=== PATIENT | female | born 1970 | race Caucasian/White ===

== ENCOUNTER 2018-10-15 02:09 | Inpatient (IN) | payer BC, OTHER ==
--- NOTE | 2018-10-15 02:43 | ED ---
Abdominal Pain HPI - General Source: patient, EMS Mode of arrival: EMS Limitations: no limitations <Hetal Brunson - Last Filed: 10/15/18 02:57> <Sukhdeep Hidalgo - Last Filed: 10/16/18 08:22> - General Chief Complaint: Abdominal Pain Stated Complaint: Kidney stones Time Seen by Provider: 10/15/18 02:13 - History of Present Illness Initial Comments: 48-year-old female patient presents to the emergency department tonight as a transfer from [facility] for possible septic kidney stone. The patient states that for the last 3 days she has been having sharp stabbing pain to the right upper quadrant abdomen radiating into her right flank. Patient states that today the pain became worse and she started to have vomiting and fever with this as well. Patient states that she has noticed a foul smell to her urine. She denies any hematuria, dysuria, urinary frequency, urinary urgency. States her temperature was as high as 101.9F. She states that she has been having increased frequency of stools but denies any diarrhea, hematochezia, or melena. States that she does have a history of kidney stones. She did have computed tomography scan at the other hospital which did show 5 mm obstructing stone at the right UPJ. Given this finding, fever, and elevated white blood cell count she was transferred here for urologic evaluation. Patient denies any recent rash, shortness breath, chest pain, numbness, tingling , dizziness, weakness, headache, visual changes, or any other complaints. ( Hetal Brunson) - Related Data Home Medications Medication Instructions Recorded Confirmed ALPRAZolam [Xanax] 0.5 mg PO BID 10/15/18 10/15/18 Alive Multivitamin 1 tab PO HS 10/15/18 10/15/18 Fenofibrate Nanocrystallized 145 mg PO HS 10/15/18 10/15/18 [Fenofibrate] Ibuprofen [Motrin] 800 mg PO TID 10/15/18 10/15/18 Metoprolol Succinate [Toprol Xl] 50 mg PO HS 10/15/18 10/15/18 Omeprazole 40 mg PO HS 10/15/18 10/15/18 PARoxetine [Paxil] 20 mg PO HS 10/15/18 10/15/18 SUMAtriptan SUCCINATE [Imitrex] 100 mg PO DAILY PRN 10/15/18 10/15/18 Allergies Allergy/AdvReac Type Severity Reaction Status Date / Time No Known Allergies Allergy Verified 10/15/18 15:40 Review of Systems ROS Other: All systems not noted in ROS Statement are negative. <Hetal Brunson - Last Filed: 10/15/18 02:57> ROS Other: All systems not noted in ROS Statement are negative. <Sukhdeep Hidalgo - Last Filed: 10/16/18 08:22> ROS Statement: Those systems with pertinent positive or pertinent negative responses have been documented in the HPI. Past Medical History Past Medical History: Hyperlipidemia, Hypertension History of Any Multi-Drug Resistant Organisms: None Reported Past Surgical History: No Surgical Hx Reported Additional Past Surgical History / Comment(s): lmupectomy from back Past Psychological History: Depression Smoking Status: Current every day smoker Past Alcohol Use History: None Reported Past Drug Use History: None Reported <Hetal Brunson - Last Filed: 10/15/18 02:57> General Exam Limitations: no limitations General appearance: alert, in no apparent distress, other (This is a well- developed, well-nourished adult female patient in no acute distress. Vital signs upon presentation are temperature 99.2F, pulse 77, respirations 16, blood pressure 119/81, pulse ox 98% on room air.) Eye exam: Present: normal appearance, PERRL, EOMI. Absent: scleral icterus, conjunctival injection, periorbital swelling ENT exam: Present: normal exam, normal oropharynx, mucous membranes moist Respiratory exam: Present: normal lung sounds bilaterally. Absent: respiratory distress, wheezes, rales, rhonchi, stridor Cardiovascular Exam: Present: regular rate, normal rhythm, normal heart sounds. Absent: systolic murmur, diastolic murmur, rubs, gallop, clicks GI/Abdominal exam: Present: soft, normal bowel sounds. Absent: distended, tenderness, guarding, rebound, rigid Back exam: Present: normal inspection, CVA tenderness (R). Absent: CVA tenderness (L) Neurological exam: Present: alert, oriented X3, CN II-XII intact Psychiatric exam: Present: normal affect, normal mood Skin exam: Present: warm, dry, intact, normal color. Absent: rash <Hetal Brunson - Last Filed: 10/15/18 02:57> Vital Signs 10/15/18 10/15/18 02:10 04:27 Temperature 99.2 F Pulse Rate 77 88 Respiratory 16 16 Rate Blood Pressure 119/81 129/79 O2 Sat by Pulse 98 98 Oximetry Medical Decision Making <Hetal Brunson - Last Filed: 10/15/18 02:57> - Lab Data Result diagrams: 10/16/18 06:02 10/16/18 06:02 <Sukhdeep Hidalgo - Last Filed: 10/16/18 08:22> - Medical Decision Making 48-year-old female patient presented to the emergency department as a transfer from [facility] for possible septic kidney stone. Did review documentation from the other hospital which showed patient did have elevated white blood cell count at 13.9, urinalysis with positive nitrite, moderate leukocyte esterase, moderate bacteria. Patient was also febrile at 101.0F. CT abdomen and pelvis did show presence of a 5 mm stone at the right UPJ. My attending Dr. Hidalgo did speak to the urologist production line Dr. Solis. We will admit to medicine with urology consult. IV antibiotics were initiated. We will continue rocephin. Patient is aware of and agrees with plan. (Hetal Brunson) I saw this patient in conjunction with the physician higher level teaching assistant. I performed independent history and physical exam. Agree with case management. I discussed case with , covering urology. (Sukhdeep Hidalgo) Disposition Decision to Admit Reason: Admit from EC Decision Date: 10/15/18 Decision Time: 02:59 <Hetal Brunson - Last Filed: 10/15/18 02:57> <Sukhdeep Hidalgo - Last Filed: 10/16/18 08:22> Clinical Impression: Kidney stone on right side, Urinary tract infection Disposition: ADMITTED IP TO THIS [facility] Condition: Serious
[2018-10-15] MEDS ORDERED: KETOROLAC 30 MG/ML 1 ML VIAL IVP PRN (02:52)
[2018-10-15] MEDS ORDERED: MORPHINE SULFATE 4 MG/ML SYRINGE IV PRN (02:52)
[2018-10-15] MEDS ORDERED: NALOXONE 0.4 MG/ML 1 ML VIAL IV PRN (02:52)
[2018-10-15] MEDS: SODIUM CHLORIDE 0.9% 1,000 ML IV SCH ×2 (03:06→18:29)
[2018-10-15] MEDS: ONDANSETRON 4 MG/2 ML VIAL IVP PRN ×2 (04:42→15:58)
--- NOTE | 2018-10-15 07:38 | P.GSCN ---
History of Present Illness Consult date: 10/15/18 Reason for Consult: Right UPJ Calculus Requesting physician: Killian Padilla History of present illness: The patient is a 48-year-old white female with a history of recurrent urolithiasis. Her calculi have always been small and not required surgery. She has experienced abdominal discomfort for approximately 3 weeks. Yesterday, she developed severe right flank pain, associated with fever and chills. She was evaluated at [facility]. A computed tomography scan revealed right hydronephrosis with perinephric stranding due to a 5 mm right proximal ureteral calculus, just distal to the ureteropelvic junction. Additional small bilateral renal calculi were seen. Review of Systems - Constitutional Reports chills, Reports chronic headaches, Reports fever - Gastrointestinal Reports nausea, Reports vomiting - Genitourinary Genitourinary: Denies dysuria, Denies hematuria Past Medical History Past Medical History: Hyperlipidemia, Hypertension History of Any Multi-Drug Resistant Organisms: None Reported Past Surgical History: No Surgical Hx Reported Additional Past Surgical History / Comment(s): lmupectomy from back Past Anesthesia/Blood Transfusion Reactions: No Reported Reaction Past Psychological History: Depression Smoking Status: Current every day smoker Past Alcohol Use History: None Reported Past Drug Use History: None Reported - Past Family History Father Family Medical History: Diabetes Mellitus, Myocardial Infarction ([place]) Additional Family Medical History / Comment(s): Father at 56 of [place] Mother Family Medical History: CVA/TIA, Diabetes Mellitus Medications and Allergies Allergies Allergy/AdvReac Type Severity Reaction Status Date / Time No Known Allergies Allergy Verified 10/15/18 03:46 Surgical - Exam Vital Signs Temp Pulse Resp BP Pulse Ox 99.2 F 77 16 119/81 98 10/15/18 02:10 10/15/18 02:10 10/15/18 02:10 10/15/18 02:10 10/15/18 02:10 - General well developed, well nourished, moderate distress - Respiratory normal respiratory effort - Abdomen Abdomen: soft, tender (Mild right CVA tenderness), no masses, no guarding, no rigid, no rebound, no distended - Psychiatric oriented to time, oriented to person, oriented to place, speech is normal, memory intact Results - Imaging CT scan - abdomen: report reviewed, image reviewed Assessment and Plan (1) Calculus of ureter Current Visit: Yes Status: Acute Code(s): N20.1 - CALCULUS OF URETER SNOMED Code(s): 62393088 (2) Acute pyelonephritis Current Visit: Yes Status: Acute Code(s): N10 - ACUTE PYELONEPHRITIS SNOMED Code(s): 91504707 (3) Hydronephrosis with urinary obstruction due to ureteral calculus Current Visit: Yes Status: Acute Code(s): N13.2 - HYDRONEPHROSIS WITH RENAL AND URETERAL CALCULOUS OBSTRUCTION SNOMED Code(s): 981803808 (4) Calculus of kidney Current Visit: Yes Status: Acute Code(s): N20.0 - CALCULUS OF KIDNEY SNOMED Code(s): 66973514 Plan: Mrs. Calixto appears to have acute right pyelonephritis complicated by a 5 mm right proximal ureteral calculus. She is receiving Rocephin. I have suggested she undergo cystoscopy with right ureteral stent placement to remove obstruction. The rationale for this was discussed. It was explained to her that following stent placement, she will be treated with appropriate antibiotics and undergo elective removal of her calculus in several weeks once her infection has cleared. Potential risks associated with stent placement were reviewed, including anesthesia, bleeding, infection, ureteral injury, and inability to successfully place a stent. It is my intent to place the stent later this afternoon. Time with Patient: Greater than 30
[2018-10-15] MEDS: ACETAMINOPHEN TAB 325 MG TAB PO PRN (08:09)
[2018-10-15 10:56] LABS: Appearance,Urine Turbid (Clear); Bacteria,Urine Moderate /hpf; Bilirubin,Urine Negative (Negative); Blood,Urine Large (Negative); Color,Urine Yellow; Glucose,Urine (UA) Negative (Negative); Ketones,Urine Negative (Negative); Leukocyte Esterase,Urine Large (Negative); Mucus,Urine Rare /hpf; Nitrite,Urine Negative (Negative); Protein,Urine 2+ (Negative); RBC,Urine 137 /hpf (0-5); Specific Gravity,Urine 1.014 (1.001-1.035); Squamous Epithelial Cell,Urine 3 /hpf (0-4); Urobilinogen,Urine <2.0 mg/dL (<2.0)
[2018-10-15] MEDS: BUTALB/APAP/CAFF 50-325-40MG TAB PO PRN (12:25)
--- NOTE | 2018-10-15 12:25 | P.HPIM ---
History of Present Illness This is a pleasant 48 years old female with past medical history of hypertension and hyperlipidemia and kidney stone. Patient was transferred from [facility]. Her presents with signs symptoms of abdominal pain. Patient states that she has abdominal pain about 3 weeks ago that subsided however yesterday she developed different kind of pain on the right abdomen and flank right taped into the right side, sharp, continuous, with no specific aggravating or relieving factors. Associated with nausea and vomiting and fever. And increased urinary frequency but without dysuria as per patient. Patient has history of kidney stones that they were small and did not need surgical intervention. [facility] patient had fever of 103 and blood cell count of 13.9 K. Platelets were low 131. Urinalysis was suggestive of infection. Potassium 3.3 liver enzymes were unremarkable. An serum creatinine is 1.[address] of the abdomen pelvis without contrast was showing numerous renal calculi with obstructing 1 and the right ureteral pelvic junction with hydronephrosis and perinephric edema which looks in new compared to old CAT scan. Patient has been already evaluated by urology team and their input is appreciated. Patient is going for procedure of cystoscopy and ureteral stent placement Review of Systems CONSTITUTIONAL: No fever, no malaise, no fatigue. HEENT: No recent visual problems or hearing problems. Denied any sore throat. CARDIOVASCULAR: No orthopnea, PND, no palpitations, no syncope. PULMONARY: No shortness of breath, no cough, no hemoptysis. GASTROINTESTINAL: No diarrhea, no nausea, no vomiting, no abdominal pain. Normoactive bowel sounds. NEUROLOGICAL: No headaches, no weakness, no numbness. HEMATOLOGICAL: Denies any bleeding or petechiae. GENITOURINARY: Denies any burning micturition, frequency, or urgency. MUSCULOSKELETAL/RHEUMATOLOGICAL: Denies any joint pain, swelling, or any muscle pain. ENDOCRINE: Denies any polyuria or polydipsia. Past Medical History Past Medical History: Hyperlipidemia, Hypertension History of Any Multi-Drug Resistant Organisms: None Reported Past Surgical History: No Surgical Hx Reported Additional Past Surgical History / Comment(s): lmupectomy from back Past Anesthesia/Blood Transfusion Reactions: No Reported Reaction Past Psychological History: Depression Smoking Status: Current every day smoker Past Alcohol Use History: None Reported Past Drug Use History: None Reported - Past Family History Father Family Medical History: Diabetes Mellitus, Myocardial Infarction ([place]) Additional Family Medical History / Comment(s): Father at 56 of [place] Mother Family Medical History: CVA/TIA, Diabetes Mellitus Medications and Allergies Home Medications Medication Instructions Recorded Confirmed Type ALPRAZolam [Xanax] 0.5 mg PO BID 10/15/18 10/15/18 History Alive Multivitamin 1 tab PO HS 10/15/18 10/15/18 History Fenofibrate Nanocrystallized 145 mg PO HS 10/15/18 10/15/18 History [Fenofibrate] Ibuprofen [Motrin] 800 mg PO TID 10/15/18 10/15/18 History Metoprolol Succinate [Toprol Xl] 50 mg PO HS 10/15/18 10/15/18 History Omeprazole 40 mg PO HS 10/15/18 10/15/18 History PARoxetine [Paxil] 20 mg PO HS 10/15/18 10/15/18 History SUMAtriptan SUCCINATE [Imitrex] 100 mg PO DAILY PRN 10/15/18 10/15/18 History Allergies Allergy/AdvReac Type Severity Reaction Status Date / Time No Known Allergies Allergy Verified 10/15/18 08:08 Physical Exam Vitals: Vital Signs Temp Pulse Pulse Resp BP BP Pulse Ox 10/15/18 10:02 98.8 F 10/15/18 07:00 102.7 F H 85 18 128/78 93 L 10/15/18 04:46 99.1 F 84 14 130/79 97 10/15/18 04:27 88 16 129/79 98 10/15/18 02:10 99.2 F 77 16 119/81 98 Intake and Output 10/14/18 10/15/18 10/15/18 22:59 06:59 14:59 Output Total 100 Balance -100 Output: Emesis 100 Other: Voiding Method Toilet Weight 97.522 kg GENERAL: The patient is alert and oriented x3, not in any acute distress. Well developed, well nourished. HEENT: Pupils are round and equally reacting to light. EOMI. No scleral icterus. No conjunctival pallor. Normocephalic, atraumatic. No pharyngeal erythema. No thyromegaly. CARDIOVASCULAR: S1 and S2 present. No murmurs, rubs, or gallops. PULMONARY: Chest is clear to auscultation, no wheezing or crackles. -ABDOMEN: Soft, nontender, nondistended, normoactive bowel sounds. No palpable organomegaly. Mild right CVA tenderness. MUSCULOSKELETAL: No joint swelling or deformity. EXTREMITIES: No cyanosis, clubbing, or pedal edema. NEUROLOGICAL: Gross neurological examination did not reveal any focal deficits. SKIN: No rashes. Results Labs: Abnormal Lab Results - Last 24 Hours (Table) 10/15/18 Range/Units 10:10 Urine Appearance Turbid H (Clear) Urine Protein 2+ H (Negative) Urine Blood Large H (Negative) Ur Leukocyte Esterase Large H (Negative) Urine RBC 137 H (0-5) /hpf Urine WBC Clumps Many H (None) /hpf Urine Bacteria Moderate H (None) /hpf Urine Mucus Rare H (None) /hpf Thrombosis Risk Factor Assmnt - Choose All That Apply Any of the Below Risk Factors Present?: Yes Each Factor Represents 1 point: Age 41-60 years, Obesity (BMI >25) Thrombosis Risk Factor Assessment Total Risk Factor Score: 2 Thrombosis Risk Factor Assessment Level: Low Risk Assessment and Plan Assessment: Acute right pyelonephritis Right hydronephrosis, secondary to obstructing renal calculi. Going for cystoscopy and ureteral stent placement by urology team Right ureteral colic No specific headache Hypertension Hyperlipidemia Plan: This is a pleasant 48 years old female who presents because of right kidney stone and right temporal nephrosis complicated by UTI. Continue with antibiotics. Urology input is appreciated patient is going for ureteral stent. Continue with IV fluids and antibiotic. Call infectious disease consult. Labs and medication were reviewed.. Continue same treatment. Continue with symptomatic treatment. Resume home medication. Monitor lytes and vitals. DVT and GI prophylaxis. Further recommendations of the clinical course of the patient DVT prophylaxis: Subcutaneous heparin GI Prophylaxis: Pepcid PT/OT: Pending Prognosis is guarded
[2018-10-15] MEDS ORDERED: LACTATED RINGERS 1,000 ML IV ONE (15:57)
[2018-10-15] MEDS ORDERED: DEXAMETHASONE SOD PHOS (MDV) 100 MG/10 ML VIAL IV ONE (15:58)
[2018-10-15] MEDS ORDERED: HYDROcodone/APAP 5-325MG 1 EACH TAB PO PRN ×2 (17:14)
--- NOTE | 2018-10-15 17:14 | P.OP ---
Date of Procedure: 10/15/18 Preoperative Diagnosis: Acute right pyelonephritis, right proximal ureteral calculus Postoperative Diagnosis: Same Procedure(s) Performed: Cystoscopy with right ureteral stent insertion Anesthesia: ITZ Surgeon: Brent Solis Estimated Blood Loss (ml): 0 IV fluids (ml): 300 Pathology: none sent Condition: stable Disposition: PACU Indications for Procedure: The patient is a 48-year-old white female admitted with acute right pyelonephritis. A CT scan revealed right hydronephrosis with perinephric stranding due to a 5 mm right proximal ureteral calculus, just distal to the ureteropelvic junction. Additional small bilateral renal calculi were seen. She is receiving IV antibiotics and now comes for placement of a ureteral stent. Operative Findings: Obstructing right proximal ureteral calculus. The urine drained from the right renal pelvis was cloudy in appearance. Description of Procedure: The patient was taken to the operating room and placed in the dorsolithotomy position, with legs supported in Apolinar stirrups. The external genitalia was prepped and draped sterilely. The 30 lens was used to introduce the 22-Honduran Stortz cystoscopic sheath through the urethra and into the bladder under direct vision. The bladder was examined in its entirety. Both ureteral orifices were of normal anatomic location and configuration. No tumors or foreign bodies were seen. A 0.035 inch Glidewire was passed through the cystoscope. The right ureteral orifice was cannulated, and the Glidewire was slowly advanced up to the renal pelvis. A 26 cm, 4.8-Honduran double-J ureteral stent was placed over the wire. Proper stent positioning was verified fluoroscopically and endoscopically. Cloudy urine drained through the stent. With the beak of the cystoscope immediately adjacent to the distal end of the stent, urine was collected and sent for culture and sensitivity. The bladder was emptied and the cystoscope removed. The patient tolerated the procedure well was taken to the recovery room in stable condition.
[2018-10-15] MEDS: FAMOTIDINE 20 MG/2 ML VIAL IV SCH (21:42)
[2018-10-15] MEDS: HEPARIN SODIUM,PORCINE 5,000 UNIT/ML 1 ML VIAL SQ SCH (21:43)
[2018-10-16] MEDS: BUTALB/APAP/CAFF 50-325-40MG TAB PO PRN (01:24)
--- NOTE | 2018-10-16 01:43 | CONS ---
CONSULTATION DATE OF SERVICE: 10/15/2018. REASON FOR CONSULTATION: Right-sided pyelonephritis, complicated urinary tract infection. HISTORY OF PRESENT ILLNESS: The patient is a 56-year-old female with past medical history significant for hypertension, hyperlipidemia, and renal stone. The patient started having pain to the right side abdominal area, mostly dull aching pain that has been going on for about 3 weeks off and on. The pain has been mostly in the flank area with some radiation to the right side. The patient says she tried to drink a lot of fluids to get relief of the pain. However, yesterday the pain got worse. The pain has been intense to almost 10/10 and severe with associated nausea and vomiting and the patient started to have a fever of 103 degrees Fahrenheit. With these symptoms, the patient presented to [facility] ER where the patient was evaluated by the ER physician. The patient did have fever of 103 degrees Fahrenheit. The patient did have elevated white count 13.9, UA was significantly positive. She did have a CT abdominal and pelvis which did show right ureteropelvic junction stone with hydronephrosis and perinephric edema. Subsequently, the patient has been transferred to [facility] ER to be evaluated by Urology service and a stent placement. The patient was started on Rocephin. Infectious Disease consultation was requested for further recommendations regarding antibiotic therapy. REVIEW OF SYSTEMS: Constitutional: Positive for weakness along with fever. Eyes: No complaint. ENT: No complaint. Respiratory: No complaint. Cardiovascular: No complaint. Genitourinary as per HPI. Gastrointestinal: As per HPI. MUSCULOSKELETAL: No complaint. INTEGUMENTARY: No complaint. Psychological no complaint. Endocrine no complaint. Neurologic no complaint. PAST MEDICAL HISTORY: Hypertension, hyperlipidemia and kidney stone, depression. PAST SURGICAL HISTORY: Lumpectomy. SOCIAL HISTORY: Positive for current every day smoking. No drinking or drug use. FAMILY HISTORY: Father with history of diabetes and [place]. Mother history of diabetes and CVA. ALLERGIES: No known drug allergies. MEDICATIONS: Medications include the patient is currently on Tylenol, , [place], Rocephin 1 g daily, Pepcid, heparin, morphine sulfate, Narcan, Zofran. PHYSICAL EXAMINATION: Blood pressure is 90/54 with a pulse of 52, temperature of 101.2. She is 93% on room air. General description is an elderly female lying in bed in no distress. No tachypnea or accessory muscles of respiration use. HEENT: Shows no pallor or scleral icterus. Oral mucosa membranes are dry. No pharyngeal erythema or thrush. NECK: Trachea central. No thyromegaly. Lungs unlabored breathing. Clear to auscultation with no wheeze or crackles. Heart S1-S2 regular rate and rhythm. ABDOMEN: Soft, mildly tender in the right flank area. No guarding. No rigidity. No organomegaly. Extremities: No edema of the feet. Skin examination: No rash or mass palpable. Neurological: Patient is awake, alert, oriented x3. Mood and affect normal. LABS: Urine has been turbid, large leukocyte esterase with more than 1-2 WBC. Cultures currently pending. White count of 13.1. CT with right-sided hydronephrosis. DIAGNOSTIC IMPRESSION AND PLAN: Patient admitted to the hospital with sepsis and the patient did have fever of 103 degrees Fahrenheit. The patient did have tachycardia, elevated white count 13.1, meeting criteria for SIRS. Source is right-sided urinary tract infection pyelonephritis complicated with right ureteropelvic junction stone, the likely organism that could be covered would be enteric gram-negative such as E coli. Apparently the patient has not been on any antibiotic therapy in the recent past. PLAN: 1. We will increase the Rocephin to 2 g IV piggyback daily. 2. IV fluids. 3. Depending upon the clinical response as well as cultures, we will adjust her medications further if needed. Thank you for this consultation. Will follow this patient along with you. MMODL / IJN: [id number] /
[2018-10-16 06:41] LABS: Basophils % (A) 0 %; Eosinophils % (A) 0 %; HCT 40.7 % (34.0-46.0); HGB 12.6 gm/dL (11.4-16.0); Hypochromasia Slight; Lymphocytes # (A) 0.9 k/uL (1.0-4.8); Lymphocytes % (A) 6 %; MCH 28.2 pg (25.0-35.0); MCHC 30.9 g/dL (31.0-37.0); MCV 91.4 fL (80.0-100.0); Mean Platelet Volume 9.6; Monocytes # (A) 0.5 k/uL (0-1.0); Monocytes % (A) 4 %; Neutrophils # (A) 13.3 k/uL (1.3-7.7); Neutrophils % (A) 89 %; Platelet Count 101 k/uL (150-450); RBC 4.45 m/uL (3.80-5.40); RDW 13.2 % (11.5-15.5); WBC 14.9 k/uL (3.8-10.6)
[2018-10-16 06:51] LABS: Calcium 8.5 mg/dL (8.4-10.2)
--- NOTE | 2018-10-16 08:18 | FL ---
EXAMINATION TYPE: FL guidance operating room DATE OF EXAM: 10/15/2018 HISTORY: Flouroscopy time 19 seconds of fluoroscopy provided. IMPRESSION: 1. Fluoroscopy time.
[2018-10-16] MEDS: FAMOTIDINE 20 MG/2 ML VIAL IV SCH (08:35)
[2018-10-16] MEDS: HEPARIN SODIUM,PORCINE 5,000 UNIT/ML 1 ML VIAL SQ SCH ×2 (08:36→21:35)
[2018-10-16] MEDS ORDERED: cefTRIAXone 2,000 MG in SODIUM CHLORIDE 0.9% 100 ML IVPB SCH (09:00)
--- NOTE | 2018-10-16 09:29 | P.PN ---
Progress Note - Text Progress Note Date: 10/16/18 Mrs. Calixto underwent stent insertion yesterday. She feels considerably better today. She reports mild bladder irritation and urgency. She denies hematuria. She is drinking a lot of fluids but reports mild nausea when she attempts to eat. She is afebrile. Her WBC count today was 14.9. Culture results are pending. In the meantime, she will continue to be treated with Rocephin.
[2018-10-16] MEDS: SODIUM CHLORIDE 0.9% 1,000 ML IV SCH ×2 (11:03→15:32)
[2018-10-16] MEDS: ACETAMINOPHEN TAB 325 MG TAB PO PRN ×2 (11:46→21:35)
[2018-10-16] MEDS: ONDANSETRON 4 MG/2 ML VIAL IVP PRN (11:49)
--- NOTE | 2018-10-16 19:36 | P.PN ---
Subjective This is a pleasant 48 years old female with past medical history of hypertension and hyperlipidemia and kidney stone. Patient was transferred from [facility]. Her presents with signs symptoms of abdominal pain. Patient states that she has abdominal pain about 3 weeks ago that subsided however yesterday she developed different kind of pain on the right abdomen and flank right taped into the right side, sharp, continuous, with no specific aggravating or relieving factors. Associated with nausea and vomiting and fever. And increased urinary frequency but without dysuria as per patient. Patient has history of kidney stones that they were small and did not need surgical intervention. [facility] patient had fever of 103 and blood cell count of 13.9 K. Platelets were low 131. Urinalysis was suggestive of infection. Potassium 3.3 liver enzymes were unremarkable. An serum creatinine is 1.[address] of the abdomen pelvis without contrast was showing numerous renal calculi with obstructing 1 and the right ureteral pelvic junction with hydronephrosis and perinephric edema which looks in new compared to old CAT scan. Patient has been already evaluated by urology team and their input is appreciated. Patient is going for procedure of cystoscopy and ureteral stent placement 10/13/2018 pt is lying in bed , not in distress, her abdominal pain has completetly resolved as per pt , she has increasing voiding frequency but she denies dysurea , no nausea and vomiting but she still look tired. she is s/p Cystoscopy with right ureteral stent insertion on 10/15/18. ID team increased her rocephin to 2 gm daily pending urinary culture results. pt is afebrile Objective - Vital Signs Vital signs: Vital Signs Temp 98.8 F 10/16/18 15:00 Pulse 63 10/16/18 15:00 Resp 16 10/16/18 15:00 BP 96/61 10/16/18 15:00 Pulse Ox 6 L 10/16/18 15:00 Intake & Output 10/16/18 10/16/18 10/17/18 06:59 18:59 06:59 Intake Total 1175 Output Total 800 Balance -800 1175 Intake: IV 1000 Sodium Chloride 0.9% 1, 1000 000 ml @ 125 mls/hr IV . Q8H KELSEY Rx#:[id number] Oral 175 Output: Urine 800 Other: Voiding Method Toilet # Voids 600 - Exam GENERAL: The patient is alert and oriented x3, not in any acute distress. Well developed, well nourished. HEENT: Pupils are round and equally reacting to light. EOMI. No scleral icterus. No conjunctival pallor. Normocephalic, atraumatic. No pharyngeal erythema. No thyromegaly. CARDIOVASCULAR: S1 and S2 present. No murmurs, rubs, or gallops. PULMONARY: Chest is clear to auscultation, no wheezing or crackles. ABDOMEN: Soft, nontender, nondistended, normoactive bowel sounds. No palpable organomegaly. MUSCULOSKELETAL: No joint swelling or deformity. EXTREMITIES: No cyanosis, clubbing, or pedal edema. NEUROLOGICAL: Gross neurological examination did not reveal any focal deficits. SKIN: No rashes. - Labs CBC & Chem 7: 10/16/18 06:02 10/16/18 06:02 Labs: Abnormal Lab Results - Last 24 Hours (Table) 10/16/18 10/16/18 Range/Units 06:02 06:02 WBC 14.9 H (3.8-10.6) k/uL MCHC 30.9 L (31.0-37.0) g/dL Plt Count 101 L (150-450) k/uL Neutrophils # 13.3 H (1.3-7.7) k/uL Lymphocytes # 0.9 L (1.0-4.8) k/uL BUN 18 H (7-17) mg/dL Glucose 122 H (74-99) mg/dL Microbiology - Last 24 Hours (Table) 10/15/18 08:35 Blood Culture - Preliminary Blood No Growth after 24 hours 10/15/18 08:05 Blood Culture - Preliminary Blood No Growth after 24 hours 10/15/18 17:00 Urine Culture - Preliminary Urine,Voided 10/15/18 10:10 Urine Culture - Preliminary Urine,Voided Assessment and Plan Assessment: Acute right pyelonephritis Right hydronephrosis, secondary to obstructing renal calculi. s/p cystoscopy and ureteral stent placement by urology team Right ureteral colic, resolved No specific headache Hypertension Hyperlipidemia Plan: This is a pleasant 48 years old female who presents because of right kidney stone and right temporal nephrosis complicated by UTI. Continue with antibiotics. Urology input is appreciated patient is going for ureteral stent. Continue with IV fluids and antibiotic. Call infectious disease consult. Labs and medication were reviewed.. Continue same treatment. Continue with symptomatic treatment. Resume home medication. Monitor lytes and vitals. DVT and GI prophylaxis. Further recommendations of the clinical course of the patient DVT prophylaxis: Subcutaneous heparin GI Prophylaxis: Pepcid PT/OT: Pending Prognosis is guarded
[2018-10-16] MEDS: FAMOTIDINE 20 MG TAB PO SCH (21:35)
--- NOTE | 2018-10-16 23:06 | XR ---
EXAMINATION TYPE: XR KUB - 2V DATE OF EXAM: 10/16/2018 COMPARISON: NONE HISTORY: Renal stent placement 10/15/2018; renal calculi TECHNIQUE: 2 upright views FINDINGS: Double pigtail right ureteral stent is in place; it courses over several right hemipelvic p hleboliths. Visualized lung bases and pleural spaces are unremarkable. Bowel gas pattern is normal. No definite acute skeletal or soft tissue findings. IMPRESSION: No acute process.
--- NOTE | 2018-10-16 23:41 | PN ---
PROGRESS NOTE DATE OF SERVICE: 10/16/2018 REASON FOR FOLLOWUP: Acute right-sided pyelonephritis, complicated. INTERVAL HISTORY: The patient's fever pattern has improved. Highest temperature today has been 100.2. The patient denies having any headache. Denies having any chest pain, shortness of breath or cough. No abdominal pain, no diarrhea. EXAMINATION: Blood pressure is 119/79 with a pulse of 83, temperature 100.2, she is 96% on room air. GENERAL DESCRIPTION: A middle-aged female, lying in bed in no distress. HEENT: Shows no pallor or scleral icterus. Oral mucosa is dry. No pharyngeal erythema. NECK: Trachea central. No thyromegaly. LUNGS: Unlabored breathing. Clear to auscultation anteriorly. No wheeze or crackle. HERAT: S1, S2. Regular rate and rhythm. ABDOMEN: Soft. LABS: Hemoglobin 12.7, white count 14.8. BUN of 18, creatinine 0.91. Cultures currently pending. DIAGNOSTIC IMPRESSION AND PLAN: Patient with acute sepsis secondary to right-sided pyelonephritis. Patient at this time is covered with Rocephin which will be continued while waiting for the culture to finalize. Continue supportive care. MMODL / IJN: [id number] /
--- NOTE | 2018-10-17 08:17 | P.PN ---
Progress Note - Text Progress Note Date: 10/17/18 Mrs. Calixto had a fever (100.2 degrees) overnight but is currently afebrile. She reports significant urinary frequency but denies pain. Blood cultures are negative, as is 1 urine culture. The other urine culture result is pending. I have asked the nursing staff to obtain the urine culture results from [facility]. I have prescribed Ditropan XL for her urinary frequency. After reviewing her KUB x-ray, I have suggested she undergo ureteroscopic removal of her calculi in 2-3 weeks, once the infection has cleared.
[2018-10-17] MEDS: FAMOTIDINE 20 MG TAB PO SCH ×2 (08:21→20:59)
[2018-10-17] MEDS: cefTRIAXone 2,000 MG in SODIUM CHLORIDE 0.9% 100 ML IVPB SCH (08:21)
[2018-10-17] MEDS: HEPARIN SODIUM,PORCINE 5,000 UNIT/ML 1 ML VIAL SQ SCH ×2 (08:21→20:59)
[2018-10-17] MEDS: OXYBUTYNIN 15 MG TAB.ER.24 PO SCH (08:30)
[2018-10-17 09:27] LABS: Basophils % (A) 0 %; Eosinophils # (A) 0.2 k/uL (0-0.7); Eosinophils % (A) 2 %; HCT 38.6 % (34.0-46.0); HGB 12.9 gm/dL (11.4-16.0); Lymphocytes # (A) 1.2 k/uL (1.0-4.8); Lymphocytes % (A) 14 %; MCH 29.4 pg (25.0-35.0); MCHC 33.4 g/dL (31.0-37.0); MCV 88.2 fL (80.0-100.0); Mean Platelet Volume 9.4; Monocytes # (A) 0.6 k/uL (0-1.0); Monocytes % (A) 6 %; Neutrophils # (A) 6.6 k/uL (1.3-7.7); Neutrophils % (A) 76 %; Platelet Count 111 k/uL (150-450); RBC 4.37 m/uL (3.80-5.40); RDW 12.9 % (11.5-15.5); WBC 8.8 k/uL (3.8-10.6)
[2018-10-17 09:41] LABS: Anion Gap 7 mmol/L; Blood Urea Nitrogen 11 mg/dL (7-17); Calcium 8.1 mg/dL (8.4-10.2); Carbon Dioxide 27 mmol/L (22-30); Chloride 105 mmol/L (98-107); Glucose 87 mg/dL (74-99); Potassium 3.4 mmol/L (3.5-5.1); Sodium 139 mmol/L (137-145)
--- NOTE | 2018-10-17 14:42 | P.PN ---
Subjective This is a pleasant 48 years old female with past medical history of hypertension and hyperlipidemia and kidney stone. Patient was transferred from [facility]. Her presents with signs symptoms of abdominal pain. Patient states that she has abdominal pain about 3 weeks ago that subsided however yesterday she developed different kind of pain on the right abdomen and flank right taped into the right side, sharp, continuous, with no specific aggravating or relieving factors. Associated with nausea and vomiting and fever. And increased urinary frequency but without dysuria as per patient. Patient has history of kidney stones that they were small and did not need surgical intervention. August [facility] patient had fever of 103 and blood cell count of 13.9 K. Platelets were low 131. Urinalysis was suggestive of infection. Potassium 3.3 liver enzymes were unremarkable. An serum creatinine is 1.[address] of the abdomen pelvis without contrast was showing numerous renal calculi with obstructing 1 and the right ureteral pelvic junction with hydronephrosis and perinephric edema which looks in new compared to old CAT scan. Patient has been already evaluated by urology team and their input is appreciated. Patient is going for procedure of cystoscopy and ureteral stent placement 10/16/2018 pt is lying in bed , not in distress, her abdominal pain has completetly resolved as per pt , she has increasing voiding frequency but she denies dysurea , no nausea and vomiting but she still look tired. she is s/p Cystoscopy with right ureteral stent insertion on 10/15/18. ID team increased her rocephin to 2 gm daily pending urinary culture results. pt is afebrile 10/17/2018 Patient she feels much better today with no abdominal pain or tenderness. Tolerating diet. No nausea vomiting. She still have increasing the frequency of urgency of urination but no masha dysuria. No hematuria. I'll on antibiotics waiting for urine culture results are per ID team which are following the patient. Objective - Vital Signs Vital signs: Vital Signs Temp 98.6 F 10/17/18 08:22 Pulse 70 10/17/18 08:22 Resp 18 10/17/18 08:22 BP 134/92 10/17/18 08:22 Pulse Ox 97 10/17/18 08:22 Intake & Output 10/16/18 10/17/18 10/17/18 18:59 06:59 18:59 Intake Total 1175 2500 Balance 1175 2500 Intake: IV 1000 1000 Sodium Chloride 0.9% 1, 1000 1000 000 ml @ 125 mls/hr IV . Q8H KELSEY Rx#:[id number] Intake, IV Titration 600 Amount Sodium Chloride 0.9% 1, 600 000 ml @ 125 mls/hr IV . Q8H KELSEY Rx#:[id number] Oral 175 900 Other: Voiding Method Toilet Toilet # Voids 600 4 - Exam GENERAL: The patient is alert and oriented x3, not in any acute distress. Well developed, well nourished. HEENT: Pupils are round and equally reacting to light. EOMI. No scleral icterus. No conjunctival pallor. Normocephalic, atraumatic. No pharyngeal erythema. No thyromegaly. CARDIOVASCULAR: S1 and S2 present. No murmurs, rubs, or gallops. PULMONARY: Chest is clear to auscultation, no wheezing or crackles. ABDOMEN: Soft, nontender, nondistended, normoactive bowel sounds. No palpable organomegaly. MUSCULOSKELETAL: No joint swelling or deformity. EXTREMITIES: No cyanosis, clubbing, or pedal edema. NEUROLOGICAL: Gross neurological examination did not reveal any focal deficits. SKIN: No rashes. - Labs CBC & Chem 7: 10/17/18 08:04 10/17/18 08:04 Labs: Abnormal Lab Results - Last 24 Hours (Table) 10/17/18 10/17/18 Range/Units 08:04 08:04 Plt Count 111 L (150-450) k/uL Potassium 3.4 L (3.5-5.1) mmol/L Calcium 8.1 L (8.4-10.2) mg/dL Microbiology - Last 24 Hours (Table) 10/15/18 08:35 Blood Culture - Preliminary Blood No Growth after 48 hours 10/15/18 08:05 Blood Culture - Preliminary Blood No Growth after 48 hours 10/15/18 10:10 Urine Culture - Final Urine,Voided Escherichia coli 10/15/18 17:00 Urine Culture - Final Urine,Voided Assessment and Plan Assessment: Acute right pyelonephritis Right hydronephrosis, secondary to obstructing renal calculi. s/p cystoscopy and ureteral stent placement by urology team Right ureteral colic, resolved No specific headache Hypertension Hyperlipidemia Plan: This is a pleasant 48 years old female who presents because of right kidney stone and right temporal nephrosis complicated by UTI. Continue with antibiotics. Urology input is appreciated patient is going for ureteral stent. Continue with IV fluids and antibiotic. Call infectious disease consult. Labs and medication were reviewed.. Continue same treatment. Continue with symptomatic treatment. Resume home medication. Monitor lytes and vitals. DVT and GI prophylaxis. Further recommendations of the clinical course of the patient DVT prophylaxis: Subcutaneous heparin GI Prophylaxis: Pepcid PT/OT: Pending Prognosis is guarded
[2018-10-17 15:14] VITALS: RESP 16
--- NOTE | 2018-10-17 22:24 | PN ---
PROGRESS NOTE DATE OF SERVICE: 10/17/2018. REASON FOR FOLLOWUP: E. coli right-sided pyelonephritis. INTERVAL HISTORY: The patient is currently afebrile. She is breathing comfortably. Pain to the right leg is currently controlled. No nausea, vomiting. Denies any chest pain, shortness of breath or cough and no diarrhea. EXAMINATION: Blood pressure is 129/75 with a pulse of 73, temperature 98.4. She is 99% on room air. General description is a middle-aged female up in the bed in no distress. Respiratory system: Unlabored breathing. Clear to auscultation anteriorly. Heart S1, S2. Regular rate and rhythm. Abdomen soft, no tenderness. LABS: Hemoglobin is 12.8, white count 8.8 with a BUN of 11, creatinine 0.71. DIAGNOSTIC IMPRESSION AND PLAN: Patient with Escherichia coli right-sided pyelonephritis with obstructed kidney, status post cystoscopy with double-J catheter placement. Patient to continue with Rocephin, however, finish therapy with oral Cipro 500 mg twice a day for another 10 days with close outpatient followup. Continue supportive care. MMODL / IJN: [id number] /
[2018-10-17] MEDS: SODIUM CHLORIDE 0.9% 1,000 ML IV SCH ×2 (23:12→23:13)
[2018-10-18 07:05] VITALS: BP 141/73; TEMP 98.5
[2018-10-18] MEDS: SODIUM CHLORIDE 0.9% 1,000 ML IV SCH (07:28)
[2018-10-18] MEDS: cefTRIAXone 2,000 MG in SODIUM CHLORIDE 0.9% 100 ML IVPB SCH (09:13)
[2018-10-18] MEDS: HEPARIN SODIUM,PORCINE 5,000 UNIT/ML 1 ML VIAL SQ SCH (10:06)
[2018-10-18] MEDS: OXYBUTYNIN 15 MG TAB.ER.24 PO SCH (10:06)
[2018-10-18] MEDS: FAMOTIDINE 20 MG TAB PO SCH (10:06)
[2018-10-18 10:30] VITALS: PULSE 74
== END 2018-10-18 11:34 | disposition home or self-care (01) | DRG 854 ==
LOC: EC 02:09 → 4SSUR 02:59
PROVIDERS: ADMIT Hospitalist; ATTEND Hospitalist
PROC: 0T768DZ Dilation of Right Ureter with Intraluminal Device, Via Natural or Artificial Opening Endoscopic (ICD-10-PCS; principal; 2018-10-15 08:00)
DX: A41.51 Sepsis due to Escherichia coli [E. coli] (principal); N10 Acute pyelonephritis; N13.6 Pyonephrosis; R65.20 Severe sepsis without septic shock; Z87.442 Personal history of urinary calculi; E78.5 Hyperlipidemia, unspecified; F17.210 Nicotine dependence, cigarettes, uncomplicated; F32.9 Major depressive disorder, single episode, unspecified; I10 Essential (primary) hypertension; Z82.3 Family history of stroke; Z82.49 Family history of ischemic heart disease and other diseases of the circulatory system; Z83.3 Family history of diabetes mellitus; Z79.899 Other long term (current) drug therapy
CPT/HCPCS: 74018; 80048; 81001; 81025; 85025; 87040; 87077; 87086; 87186; 88108; 99285

== ENCOUNTER 2018-11-05 14:19 | Day surgery (SDC) | payer OTHER ==
[2018-11-02 13:32] VITALS: BMI 29.9
--- NOTE | 2018-11-05 07:53 | P.GSHP ---
History of Present Illness H&P Date: 11/05/18 Chief Complaint: Right ureteral calculus The patient is a 48-year-old white female admitted last month with acute right pyelonephritis. A CT scan revealed right hydronephrosis with perinephric stranding due to a 5 mm right proximal ureteral calculus, just distal to the ureteropelvic junction. Additional small bilateral renal calculi were seen. She was treated with IV antibiotics and underwent placement of a ureteral stent. The infection has resolved and she now comes for cystoscopy, right ureteral stent removal, right ureteroscopy with Holmium laser lithotripsy. - Constitutional Constitutional: Denies chills, Denies fever - Gastrointestinal Gastrointestinal: Denies nausea, Denies vomiting - Genitourinary (Female) Genitourinary: Reports kidney stones, Reports urinary frequency, Denies hematuria Past Medical History Past Medical History: Hyperlipidemia, Hypertension Additional Past Medical History / Comment(s): kidney stones, hx migraines History of Any Multi-Drug Resistant Organisms: None Reported Past Surgical History: No Surgical Hx Reported Additional Past Surgical History / Comment(s): lmupectomy from back, ureter stent Past Anesthesia/Blood Transfusion Reactions: No Reported Reaction Smoking Status: Current every day smoker - Past Family History Father Family Medical History: Diabetes Mellitus, Myocardial Infarction ([place]) Additional Family Medical History / Comment(s): Father at 56 of [place] Mother Family Medical History: CVA/TIA, Diabetes Mellitus Medications and Allergies Home Medications Medication Instructions Recorded Confirmed Type ALPRAZolam [Xanax] 0.5 mg PO BID PRN 10/15/18 11/02/18 History Fenofibrate Nanocrystallized 145 mg PO HS 10/15/18 11/02/18 History [Fenofibrate] Ibuprofen [Motrin] 800 mg PO TID 10/15/18 11/02/18 History Metoprolol Succinate [Toprol Xl] 50 mg PO HS 10/15/18 11/02/18 History Omeprazole 40 mg PO HS 10/15/18 11/02/18 History PARoxetine [Paxil] 20 mg PO HS 10/15/18 11/02/18 History SUMAtriptan SUCCINATE [Imitrex] 100 mg PO DAILY PRN 10/15/18 11/02/18 History Acetaminophen Tab [Tylenol] 650 mg PO Q6HR PRN #20 tab 10/18/18 11/02/18 Rx Ciprofloxacin HCl [Cipro] 500 mg PO Q12H 10 Days #20 tab 10/18/18 11/02/18 Rx Famotidine [Pepcid] 20 mg PO Q12HR 7 Days #14 tab 10/18/18 11/02/18 Rx Allergies Allergy/AdvReac Type Severity Reaction Status Date / Time No Known Allergies Allergy Verified 11/02/18 13:26 Surgical - Exam - General well developed, well nourished, no distress - Neck no masses, trachea midline - Respiratory normal respiratory effort, clear to auscultation - Cardiovascular Rhythm: regular Abnormal Heart Sounds: no systolic murmur, no diastolic murmur, no rub, no S3 Gallop, no S4 Gallop, no click, no other - Abdomen Abdomen: soft, non tender, no guarding, no rigid, no rebound - Psychiatric oriented to time, oriented to person, oriented to place, speech is normal, memory intact Results - Imaging CT scan - abdomen: report reviewed, image reviewed Assessment and Plan (1) Calculus of ureter Status: Acute Code(s): N20.1 - CALCULUS OF URETER SNOMED Code(s): 57829618 Plan: Cystoscopy, right ureteral stent removal, right ureteroscopy with Holmium laser lithotripsy. The procedure is been reviewed in detail with the patient and her . They understand potential risks to include anesthesia, bleeding, infection, inability to completely eradicate the calculi, and ureteral injury.
[~2018-11-05 14:19] MED LIST: DEXAMETHASONE SOD PHOSPHATE 10 MG/ML 1 ML VIAL IV ONE; HYDROmorphone 1 MG/ML 1 ML SYRINGE IVP PRN; IOPAMIDOL-370 50ML BTL MISCELLANE ONE; LACTATED RINGERS 1,000 ML IV SCH; MIDAZOLAM (PF) 2 MG/2 ML VIAL IV PRN; ONDANSETRON 4 MG/2 ML VIAL IVP ONE; SCOPOLAMINE 1.5MG/72HR PATCH TRANSDERM ONE; ceFAZolin IN SWFI 2 GM/20 ML SYRINGE IVP ONE
[2018-11-05] MEDS ORDERED: LACTATED RINGERS 1,000 ML IV ONE ×4 (15:13→17:51)
[2018-11-05] MEDS ORDERED: LIDOCAINE 1% 20 ML VIAL (10MG/ML) FOR IV START INTRADERMA ONE (15:13)
--- NOTE | 2018-11-05 16:12 | XR ---
EXAMINATION TYPE: XR KUB DATE OF EXAM: 11/05/2018 4:02 PM CLINICAL HISTORY: Right-sided kidney stone TECHNIQUE: Two supine KUB images of the abdomen are obtained. COMPARISON: Abdominal x-ray October 16, 2018 FINDINGS: There is redemonstration of right double-J ureter stent. There is suspected 4 mm calculus n ear proximal stent. There are smaller scattered right renal calculi identified likely 3-4 calculi the linear scattered by fecal material. Numerous pelvic phleboliths are redemonstrated bilaterally. Overall nonobstructive bowel gas pattern. Visualized osseous structures are intact. IMPRESSION: Stable right double-J ureter stent. Stable small right-sided nephrolithiasis. Possible pa ssage of 4 mm calculus into right collecting system near proximal stent.
[2018-11-05] MEDS ORDERED: ROCURONIUM BROMIDE 10 MG/ML 10 ML VIAL IV ONE (17:29)
[2018-11-05] MEDS ORDERED: GLYCOPYRROLATE 0.2 MG/ML 2 ML VIAL ONE (17:29)
[2018-11-05] MEDS ORDERED: LIDOCAINE 1% INJ 10MG/ML (20 ML MDV) ONE (17:29)
[2018-11-05] MEDS ORDERED: fentaNYL (PF) 50 MCG/ML 2 ML AMP ONE (17:29)
[2018-11-05] MEDS ORDERED: NEOSTIGMINE 1 MG/ML 10 ML VIAL ONE (17:29)
[2018-11-05] MEDS ORDERED: ePHEDrine SULFATE/0.9% NACL/PF 50 MG/5 ML SYRINGE IV ONE (17:29)
[2018-11-05] MEDS ORDERED: SUCCINYLCHOLINE CHLORIDE 100 MG/5 ML SYR IV ONE (17:29)
[2018-11-05] MEDS ORDERED: MIDAZOLAM 2 MG/2 ML VIAL ONE (17:29)
[2018-11-05] MEDS ORDERED: PROPOFOL 10 MG/ML 20 ML VIAL IV ONE (17:29)
--- NOTE | 2018-11-05 18:31 | P.OP ---
Date of Procedure: 11/05/18 Preoperative Diagnosis: Right ureteral calculus, right renal calculi Postoperative Diagnosis: Same Procedure(s) Performed: Cystoscopy, right ureteral stent removal, right ureteroscopy with Holmium laser lithotripsy Anesthesia: ITZ Surgeon: Brent Solis Estimated Blood Loss (ml): 10 IV fluids (ml): 600 Pathology: none sent Condition: stable Disposition: PACU Indications for Procedure: The patient is a 48-year-old white female admitted last month with acute right pyelonephritis. A CT scan revealed right hydronephrosis with perinephric stranding due to a 5 mm right proximal ureteral calculus, just distal to the ureteropelvic junction. Additional small bilateral renal calculi were seen. She was treated with IV antibiotics and underwent placement of a ureteral stent. The infection has resolved and she now comes for cystoscopy, right ureteral stent removal, right ureteroscopy with Holmium laser lithotripsy. Operative Findings: Right proximal ureteral calculus. Small right renal calculi. All calculi fragmented. Description of Procedure: The patient was taken to the operating room and placed in the dorsolithotomy position, with legs supported in Apolinar stirrups. The external genitalia was prepped and draped sterilely. The 30 lens was used to introduce the 22-Russian Stortz cystoscopic sheath through the urethra and into the bladder under direct vision. The bladder was examined in its entirety. The left ureteral orifice appeared normal. Edema surrounding the right ureteral orifice. No tumors or other abnormalities were seen. Grasping forceps were used to remove the stent along with the ureteroscope. A 0.038 inch Glidewire was passed through the stent. The Glidewire was advanced up to the level of the right proximal ureteral calculus and beyond it, into the right renal pelvis. An 11/13-Russian ureteral access catheter was passed over the wire, up to the mid ureter. The Olympus flexible ureteroscope was then passed through the ureteral access catheter sheath and up to the calculus. The 200 micron Holmium laser probe was passed through the ureteroscope, and lithotripsy was performed. Initially, a dusting technique was utilized. The calculus migrated proximally into an upper pole calyx, where lithotripsy was completed by fragment the calculus. This was performed until all calculus fragments were 1-2 mm in size. Each calyx was then examined, and several additional small calculi were identified. Each of these were fragmented. A final look into the renal pelvis revealed no residual calculi of significance. Therefore, the ureteroscope was withdrawn along with the ureteral access catheter sheath and the procedure was terminated. The patient tolerated the procedure well and was taken to the recovery room in stable condition.
[2018-11-05 18:44] VITALS: TEMP 97.6
[2018-11-05 19:51] VITALS: RESP 16
[2018-11-05 20:10] VITALS: BP 134/80; PULSE 59
--- NOTE | 2018-11-06 09:33 | FL ---
EXAMINATION TYPE: FL guidance operating room DATE OF EXAM: 11/05/2018 HISTORY: Flouroscopy time 39 seconds of fluoroscopy provided. IMPRESSION: 1. Fluoroscopy time.
== END 2018-11-05 20:14 | disposition home or self-care (01) ==
LOC: OR 14:19
PROVIDERS: ATTEND Urology
DX: N20.2 Calculus of kidney with calculus of ureter (principal); Z87.442 Personal history of urinary calculi; E78.5 Hyperlipidemia, unspecified; I10 Essential (primary) hypertension; G43.909 Migraine, unspecified, not intractable, without status migrainosus; K21.9 Gastro-esophageal reflux disease without esophagitis; F41.9 Anxiety disorder, unspecified; F41.0 Panic disorder [episodic paroxysmal anxiety]; F32.9 Major depressive disorder, single episode, unspecified; F17.210 Nicotine dependence, cigarettes, uncomplicated; Z79.1 Long term (current) use of non-steroidal anti-inflammatories (NSAID); Z79.899 Other long term (current) drug therapy
CPT/HCPCS: 81025; 84132; 74018; 52353; C1769; J2250; J1100; J2710; J2405; J2001; J3010; J0330; J2704; J0690

== ENCOUNTER → 2024-05-31 | Outpatient (CLI) | payer OTHER ==
--- NOTE | 2024-05-31 15:30 | XR ---
EXAMINATION TYPE: XR KUB DATE OF EXAM: 05/31/2024 2:18 PM CLINICAL INDICATION:Female, 54 years old with history of N20.0 Calculus kidney L R, N20.1 Calculus ur eter R; [facility] COMPARISON: 11/05/2018. TECHNIQUE: One radiographic view of the abdomen was obtained. FINDINGS: The bowel gas pattern is nonspecific without dilated loops of small or large bowel. . Fecal material and gas are demonstrated throughout the colon and rectum. There is no evidence for organomegaly or pneumoperitoneum. The osseous structures are intact. Bilat eral renal calculi measuring up to 7 mm in the mid ureter on the right and 15 mm mm on the left in th e renal pelvis. IMPRESSION: Bilateral renal calculi the right appears in the right mid ureter and the left is in the renal pelvis ..
== END | disposition home or self-care (01) ==
LOC: RADXRMAIN 14:01
PROVIDERS: ATTEND Urology
DX: N20.2 Calculus of kidney with calculus of ureter (principal)
CPT/HCPCS: 74018

== ENCOUNTER → 2024-06-11 | Outpatient (CLI) | payer OTHER ==
[2024-06-11 10:40] LABS: Basophils # (A) 0.05 X 10*3/uL (0.00-0.10); Basophils % (A) 0.7 %; Eosinophils # (A) 0.16 X 10*3/uL (0.04-0.35); Eosinophils % (A) 2.3 %; HCT 45.3 % (37.2-46.3); HGB 14.9 g/dL (12.0-15.0); Lymphocytes # (A) 1.56 X 10*3/uL (0.90-5.00); Lymphocytes % (A) 22.9 %; MCH 30.2 pg (27.0-32.0); MCHC 32.9 g/dL (32.0-37.0); MCV 91.9 FL (80.0-97.0); Mean Platelet Volume 12.7 FL (9.5-12.2); Monocytes # (A) 0.59 X 10*3/uL (0.20-1.00); Monocytes % (A) 8.7 %; NRBC Per 100 WBC 0 X 10*3/uL (0.00-0.01); Neutrophils # (A) 4.44 X 10*3/uL (1.80-7.70); Neutrophils % (A) 65.1 %; Platelet Count 162 X 10*3/uL (140-440); RBC 4.93 X 10*6/uL (4.10-5.20); RDW 12.1 % (11.5-14.5); WBC 6.82 X 10*3/uL (4.50-10.00)
[2024-06-11 13:28] LABS: BUN/Creat Ratio 20.25 Ratio (12.00-20.00); Blood Urea Nitrogen 16.2 mg/dL (9.0-27.0); Calcium 9.4 mg/dL (8.7-10.3); Carbon Dioxide 30.7 mmol/L (21.6-31.8); Chloride 103 mmol/L (96-109); Glucose 133 mg/dL (70-110); Potassium 4.2 mmol/L (3.5-5.5); Sodium 145 mmol/L (135-145)
== END | disposition home or self-care (01) ==
LOC: LABWHC1 08:02
PROVIDERS: ATTEND Urology
DX: Z01.812 Encounter for preprocedural laboratory examination (principal); N20.1 Calculus of ureter; N20.0 Calculus of kidney
CPT/HCPCS: 36415; 80048; 85025

== ENCOUNTER 2024-06-13 07:36 | Day surgery (SDC) | payer OTHER ==
[2024-06-11 15:33] VITALS: BMI 32.1
--- NOTE | 2024-06-12 22:44 | P.GSHP ---
History of Present Illness H&P Date: 06/12/24 Chief Complaint: Right renal colic Patient is a 54-year-old white female with a history of urolithiasis. A previous calculus was composed predominantly of calcium oxalate monohydrate. She now presents with a 3-week history of right flank and suprapubic pressure/pain. CT scan shows moderate right hydronephrosis due to a 7 mm right proximal ureteral calculus. Also seen were 4 left renal calculi measuring up to 1 cm in size, and 7 right renal calculi measuring up to 6 mm in size. Given the stone burden and the fact that the calculus was not migrating distally based on a follow-up x-ray, the patient has elected to undergo ureteroscopic removal of the right ureteral calculus. It is intended to also remove the right renal calculi. ESWL was discussed as an option. - Constitutional Constitutional: Denies chills, Denies fever - Gastrointestinal Gastrointestinal: Reports nausea, Reports vomiting - Genitourinary (Female) Genitourinary: Reports flank pain, Reports kidney stones, Denies hematuria Past Medical History Past Medical History: GERD/Reflux, Hyperlipidemia, Hypertension Additional Past Medical History / Comment(s): Hx of and current kidney stones, hx migraines. History of Any Multi-Drug Resistant Organisms: None Reported Past Surgical History: No Surgical Hx Reported Additional Past Surgical History / Comment(s): Lump removed from back, ureteral stent placed. Past Anesthesia/Blood Transfusion Reactions: No Reported Reaction Smoking Status: Former smoker - Past Family History Father Family Medical History: Diabetes Mellitus, Myocardial Infarction ([place]) Additional Family Medical History / Comment(s): Father at 56 of [place]. Mother Family Medical History: CVA/TIA, Diabetes Mellitus Medications and Allergies Home Medications Medication Instructions Recorded Confirmed Type Metoprolol Succinate [Toprol Xl] 50 mg PO HS 10/15/18 06/11/24 History Omeprazole 40 mg PO HS 10/15/18 06/11/24 History Black Cohosh (Unknown Dose) 1 tab PO HS 06/11/24 06/11/24 History Citalopram Hydrobromide 40 mg PO HS 06/11/24 06/11/24 History [Citalopram HBr] Evening [place] Oil (? Dose) 1 tab PO HS 06/11/24 06/11/24 History Ferrous Sulfate [Iron] 325 mg PO HS 06/11/24 06/11/24 History Magnesium Oxide [Magnesium] 500 mg PO HS 06/11/24 06/11/24 History Multivitamins, Thera [Multivitamin 1 tab PO HS 06/11/24 06/11/24 History (formulary)] Rosuvastatin Calcium 40 mg PO HS 06/11/24 06/11/24 History Tamsulosin HCl [Flomax] 0.4 mg PO HS 06/11/24 06/11/24 History Vitamin C/Biotin [Hair, Skin and 1 tab PO HS 06/11/24 06/11/24 History Nails Chew] Vitamin D (Unknown Dose) 1 tab PO HS 06/11/24 06/11/24 History Vitamin E (Unknown Dose) 1 tab PO HS 06/11/24 06/11/24 History lisinopriL 40 mg PO HS 06/11/24 06/11/24 History Allergies Allergy/AdvReac Type Severity Reaction Status Date / Time No Known Allergies Allergy Verified 06/11/24 15:18 Surgical - Exam - General well developed, well nourished, no distress - Respiratory normal respiratory effort - Psychiatric oriented to time, oriented to person, oriented to place, speech is normal, memory intact Results - Imaging CT scan - abdomen: report reviewed, image reviewed Assessment and Plan (1) Calculus of kidney Status: Acute Code(s): N20.0 - CALCULUS OF KIDNEY SNOMED Code(s): 68857036 (2) Calculus of ureter Status: Acute Code(s): N20.1 - CALCULUS OF URETER SNOMED Code(s): 12773095 Plan: Cystoscopy, right retrograde pyelogram, right ureteroscopy with Holmium laser lithotripsy and stone basketing, right ureteral stent insertion. Patient has previously undergone this procedure and understands potential risks to include anesthesia, bleeding, infection, ureteral injury, and inability to remove all calculi.
[~2024-06-13 07:36] MED LIST changes: -DEXAMETHASONE SOD PHOSPHATE 10 MG/ML 1 ML VIAL IV ONE; -HYDROmorphone 1 MG/ML 1 ML SYRINGE IVP PRN; -IOPAMIDOL-370 50ML BTL MISCELLANE ONE; -LACTATED RINGERS 1,000 ML IV SCH; -MIDAZOLAM (PF) 2 MG/2 ML VIAL IV PRN; -ONDANSETRON 4 MG/2 ML VIAL IVP ONE; +SCOPOLAMINE 1 MG/72 HR PATCH TRANSDERM ONE; -SCOPOLAMINE 1.5MG/72HR PATCH TRANSDERM ONE; -ceFAZolin IN SWFI 2 GM/20 ML SYRINGE IVP ONE; +droPERidol 5 MG/2 ML VIAL IVP ONE
--- NOTE | 2024-06-13 08:00 | XR ---
EXAMINATION TYPE: XR KUB DATE OF EXAM: 06/13/2024 COMPARISON: 05/31/2024 HISTORY: Renal calculi TECHNIQUE: One view abdominal series FINDINGS: The osseous structures are intact. The bowel gas pattern is nonspecific. Mild degenerative change of the spine. Bilateral hypertrophic hip arthropathy correlate for femoral acetabular impingement. Calc ifications in the pelvis are nonspecific but stable and likely vascular. Left kidney: Approximately 7 calcifications overlying the left kidney largest measures 1.1 cm. Right kidney: Limited by overlying bowel content suspected at least 5-6 calcifications measuring 5 mm or less. Calcifications seen along the right paraspinal line on the prior exam now likely overlying the sacrum on the frontal view and has migrated slightly. IMPRESSION: 1. Bilateral nephrolithiasis. Right paraspinal calcification which may have been in the course of the right ureter on prior exam now overlies the sacrum and may have slightly migrated compared to prior exam.
[2024-06-13 08:22] VITALS: RESP 16
[2024-06-13] MEDS: IV FLUID CONTINUATION 1,000 ML IV ONE ×2 (08:22→12:48)
[2024-06-13] MEDS: LACTATED RINGERS 1,000 ML IV SCH (08:22)
[2024-06-13] MEDS: LIDOCAINE 1% (10MG/ML) FOR IV START INTRADERMA PRN (08:22)
[2024-06-13] MEDS: ONDANSETRON 4 MG/2 ML VIAL IVP ONE (08:29)
[2024-06-13] MEDS: DEXAMETHASONE SOD PHOSPHATE 4 MG/ML 1 ML VIAL IV ONE (08:30)
[2024-06-13] MEDS ORDERED: MIDAZOLAM 2 MG/2 ML VIAL ONE (11:24)
[2024-06-13] MEDS ORDERED: fentaNYL (PF) 50 MCG/ML 2 ML AMP ONE (11:24)
[2024-06-13] MEDS ORDERED: ePHEDrine 50 MG/ML 1 ML VIAL ONE (11:24)
[2024-06-13] MEDS ORDERED: LIDOCAINE 1% INJ 10MG/ML (20 ML MDV) ONE (11:24)
[2024-06-13] MEDS ORDERED: SUCCINYLCHOLINE CHLORIDE 200 MG/10 ML VIAL IV ONE (11:24)
[2024-06-13] MEDS ORDERED: PROPOFOL 10 MG/ML 20 ML VIAL IV ONE (11:24)
--- NOTE | 2024-06-13 12:39 | P.OP ---
Date of Procedure: 06/13/24 Preoperative Diagnosis: Right ureteral calculus, right renal calculi Postoperative Diagnosis: Same Procedure(s) Performed: Cystoscopy, right ureteroscopy with Holmium laser lithotripsy and stone basketing, right ureteral stent insertion Anesthesia: PABLOA Surgeon: Brent Solis Estimated Blood Loss (ml): 10 IV fluids (ml): 300 Pathology: none sent Condition: stable Disposition: PACU Indications for Procedure: Patient is a 54-year-old white female with a history of urolithiasis. A previous calculus was composed predominantly of calcium oxalate monohydrate. She now presents with a 3-week history of right flank and suprapubic pressure/pain. CT scan shows moderate right hydronephrosis due to a 7 mm right proximal ureteral calculus. Also seen were 4 left renal calculi measuring up to 1 cm in size, and 7 right renal calculi measuring up to 6 mm in size. Given the stone burden and the fact that the calculus was not migrating distally based on a follow-up x-ray, the patient has elected to undergo ureteroscopic removal of the right ureteral calculus. It is intended to also remove the right renal calculi. ESWL was discussed as an option. Operative Findings: 7 mm right mid ureteral calculus, fragmented and removed completely. 3 small right renal calculi, removed via stone basketing. Description of Procedure: The patient was taken to the operating room and placed in the [facility] sition, with legs supported in Apolinar stirrups. The external genitalia was prepped and draped sterilely. The 30 lens was used to introduce the 21-Omani Overton cystoscopic sheath through the urethra and into the bladder under direct vision. The bladder was examined in its entirety. Both ureteral orifices were normal anatomic location and configuration, and clear urine effluxed from both. No tumors or foreign bodies were seen. The Overton semirigid ureteroscope was advanced into the bladder, and the right ureteral orifice was cannulated. The ureteroscope was slowly advanced under direct vision, up to the calculus. The 272 m holmium laser probe was passed through the ureteroscope, and lithotripsy was performed. The calculus was fragmented, and as pieces broke away they passed distally into the bladder. 1 larger fragment was removed using a 1.9 Omani 0 tip nitinol basket. Once the ureteral catheter was removed in its entirety, a 0.038 inch Glidewire was passed through the ureteroscope and advanced up to the right renal pelvis. The ureteroscope was removed, and an 11/13-Omani ureteral access catheter was passed over the wire, up to the proximal ureter. The Overton Cobra flexible ureteroscope was then passed through the ureteral access catheter sheath, up to the renal pelvis. Each calyx was examined. 3 small calculi were seen, all of which were removed using the nitinol basket. No additional calculi were seen. Pullout ureteroscopy showed no evidence of ureteral trauma. The Glidewire was passed through the ureteroscope, which was removed along with the ureteral access catheter sheath. The Glidewire was backloaded into the cystoscope, which was passed into the bladder. A 26 cm, 4.8 Omani double-J ureteral stent was placed over the wire. Proper stent positioning was verified fluoroscopically and endoscopically. The bladder was emptied and the cystoscope removed. The patient tolerated the procedure well and was taken to the recovery room in stable condition. MUSIC ROCKS Report: Procedure Acuity: Semi-Urgent Stone Size and Location: 7 mm, right mid ureter Ureteral Dilation: No Ureteral Access Sheath Used: Yes Stone Sent for Analysis: No All Stones/Fragments Were Removed with a Basket: Yes Complications: No Preoperative Antibiotics Given: Yes Stent Placed: Yes If Stent Placed, Was String Left Attached: No If Stent Placed, When is it to be Removed: 1 week Discharge Medications: Toradol, tamsulosin
--- NOTE | 2024-06-13 12:46 | FL ---
EXAMINATION TYPE: FL guidance operating room DATE OF EXAM: 06/13/2024 HISTORY: Fluoroscopy time Total dose area product (DAP) in uGy*m?, mGy*cm? (or similar): 3.0247 IMPRESSION: 1. Fluoroscopy time.
[2024-06-13 12:51] VITALS: TEMP 96.8
[2024-06-13] MEDS: HYDROmorphone 0.5 MG/0.5 ML SYRINGE IVP PRN (13:00)
[2024-06-13 13:45] VITALS: BP 148/75; PULSE 62
== END 2024-06-13 14:00 | disposition home or self-care (01) ==
LOC: OR 07:36
PROVIDERS: ATTEND Urology
DX: N13.2 Hydronephrosis with renal and ureteral calculous obstruction (principal); K21.9 Gastro-esophageal reflux disease without esophagitis; E78.5 Hyperlipidemia, unspecified; F32.A Depression, unspecified; G43.909 Migraine, unspecified, not intractable, without status migrainosus; I10 Essential (primary) hypertension; Z87.891 Personal history of nicotine dependence; Z83.3 Family history of diabetes mellitus; Z82.49 Family history of ischemic heart disease and other diseases of the circulatory system; Z82.3 Family history of stroke; Z79.899 Other long term (current) drug therapy
CPT/HCPCS: 81025; 74018; 52356; C2625; C1758; C1769; J2250; J0330; J1100; J0690; J2405; J2001; J3010; J2704; J1170

== ENCOUNTER 2024-06-22 13:15 | Observation (INO) | payer OTHER ==
--- NOTE | 2024-06-22 13:29 | ED ---
General Adult HPI - General Stated complaint: Post-op pain Time Seen by Provider: 06/22/24 13:22 Source: patient, RN notes reviewed, old records reviewed Mode of arrival: ambulatory Limitations: no limitations - History of Present Illness Initial comments: 54-year-old female presents emergency department chief complaint of fever, abdominal pain. Patient states she had a stent placed last week by Dr. Solis for kidney stone. Patient states that she started having urinary frequency, fever, flank pain. She was placed on Zofran and Cipro and Flomax yesterday states symptoms are worse today she feels dehydrated she has not been able to keep anything down she had increasing nausea vomiting. She states that she has noticed increasing blood in her urine - Related Data Home Medications Medication Instructions Recorded Confirmed Metoprolol Succinate [Toprol Xl] 50 mg PO HS 10/15/18 06/22/24 Omeprazole 40 mg PO HS 10/15/18 06/22/24 Black Cohosh (Unknown Dose) 1 tab PO HS 06/11/24 06/22/24 Citalopram Hydrobromide 40 mg PO HS 06/11/24 06/22/24 [Citalopram HBr] Evening [place] Oil (? Dose) 1 tab PO HS 06/11/24 06/22/24 Ferrous Sulfate [Iron] 325 mg PO HS 06/11/24 06/22/24 Magnesium Oxide [Magnesium] 500 mg PO HS 06/11/24 06/22/24 Multivitamins, Thera [Multivitamin 1 tab PO HS 06/11/24 06/22/24 (formulary)] Rosuvastatin Calcium 40 mg PO HS 06/11/24 06/22/24 Tamsulosin HCl [Flomax] 0.4 mg PO HS 06/11/24 06/22/24 Vitamin C/Biotin [Hair, Skin and 1 tab PO HS 06/11/24 06/22/24 Nails Chew] Vitamin D (Unknown Dose) 1 tab PO HS 06/11/24 06/22/24 Vitamin E (Unknown Dose) 1 tab PO HS 06/11/24 06/22/24 lisinopriL 40 mg PO HS 06/11/24 06/22/24 Ciprofloxacin HCl [Cipro] 500 mg PO BID 06/22/24 06/22/24 Ondansetron Odt [Zofran Odt] 4 mg PO Q8HR PRN 06/22/24 06/22/24 Allergies Allergy/AdvReac Type Severity Reaction Status Date / Time No Known Allergies Allergy Verified 06/22/24 17:10 Review of Systems ROS Statement: Those systems with pertinent positive or pertinent negative responses have been documented in the HPI. ROS Other: All systems not noted in ROS Statement are negative. Past Medical History Past Medical History: Hyperlipidemia, Hypertension Additional Past Medical History / Comment(s): kidney stones, hx migraines History of Any Multi-Drug Resistant Organisms: None Reported Past Surgical History: No Surgical Hx Reported Additional Past Surgical History / Comment(s): lmupectomy from back, ureter stent Past Anesthesia/Blood Transfusion Reactions: No Reported Reaction Past Alcohol Use History: None Reported Additional Past Alcohol Use History / Comment(s): smokes 1/2 ppd Past Drug Use History: None Reported - Past Family History Father Family Medical History: Diabetes Mellitus, Myocardial Infarction ([place]) Additional Family Medical History / Comment(s): Father at 56 of [place]. Mother Family Medical History: CVA/TIA, Diabetes Mellitus General Exam - General Exam Comments Initial Comments: Visual Physical Exam Vital signs reviewed General: Well-appearing, nontoxic, no acute distress. Head: Normocephalic, atraumatic Eyes: PERRLA, EOMI ENT: Airway patent Chest: Nonlabored breathing Skin: No visual rash, normal skin tone Neuro: Alert and oriented 3 Musculoskeletal: No gross abnormalities Limitations: no limitations General appearance: alert, in no apparent distress Head exam: Present: atraumatic, normocephalic, normal inspection Respiratory exam: Present: normal lung sounds bilaterally. Absent: respiratory distress, wheezes, rales, rhonchi, stridor Cardiovascular Exam: Present: regular rate, normal rhythm, normal heart sounds. Absent: systolic murmur, diastolic murmur, rubs, gallop, clicks GI/Abdominal exam: Present: soft, normal bowel sounds. Absent: distended, tenderness, guarding, rebound, rigid Neurological exam: Present: alert Course Vital Signs 06/22/24 06/22/24 06/22/24 14:11 16:55 18:45 Temperature 100.4 F H 100 F H 98.5 F Pulse Rate 95 79 63 Pulse Rate [ Pulse Oximetery ] Respiratory 20 20 18 Rate Blood Pressure 151/89 138/87 128/85 Blood Pressure [Right Arm] O2 Sat by Pulse 98 95 95 Oximetry 06/22/24 06/22/24 20:16 20:21 Temperature 98.4 F Pulse Rate Pulse Rate [ 61 Pulse Oximetery ] Respiratory 16 Rate Blood Pressure Blood Pressure 138/90 [Right Arm] O2 Sat by Pulse 96 Oximetry Medical Decision Making - Medical Decision Making I completed the quick note portion of this chart signed Vic Thomas PA-C Was pt. sent in by a medical professional or institution (MILKA Dong, LIFE SCIENCES INSTRUCTOR, urgent care, hospital, or intermediate...) When possible be specific @ -No Did you speak to anyone other than the patient for history (EMS, parent, family, police, friend...)? What history was obtained from this source @ -No Did you review nursing and triage notes (agree or disagree)? Why? @ -I reviewed and agree with nursing and triage notes Were old charts reviewed (outside hosp., previous admission, EMS record, old EKG, old radiological studies, urgent care reports/EKG's, intermediate records)? Report findings @ -No old charts were reviewed Differential Diagnosis (chest pain, altered mental status, abdominal pain women, abdominal pain men, vaginal bleeding, weakness, fever, dyspnea, syncope, headache, dizziness, GI bleed, back pain, seizure, CVA, palpatations, mental health, musculoskeletal)? @ -Differential Abdominal Pain Women: Appendicitis, Cholecystitis, diverticulosis, ischemic bowel, pancreatitis, hepatitis, UTI, gastroenteritis, AAA, incarcerated hernia, bowel obstruction, constipation, inflammatory bowel, hepatitis, peptic ulcer disease, splenic infarction, perforated viscus, vulvitis, ovarian torsion, PID, kidney stone, placenta abruption, this is not meant to be an all-inclusive list EKG interpreted by me (3pts min.). @ -none X-rays interpreted by me (1pt min.). @ -None done CT interpreted by me (1pt min.). @ -None done U/S interpreted by me (1pt. min.). @ -None done What testing was considered but not performed or refused? (CT, X-rays, U/S, labs)? Why? @ -None What meds were considered but not given or refused? Why? @ -None Did you discuss the management of the patient with other professionals (professionals i.e. Dr., PA, LIFE SCIENCES INSTRUCTOR, lab, RT, psych nurse, older adult social work specialist, agricultural equipment mechanic, teacher, founder and chief executive officer, lining caser)? Give summary @ -Urology, medicine for admission Was smoking cessation discussed for >3mins.? @ -No Was critical care preformed (if so, how long)? @ -No Were there social determinants of health that impacted care today? How? (Homelessness, low income, unemployed, alcoholism, drug addiction, transportation, low edu. Level, literacy, decrease access to med. care, shelter, rehab)? @ -No Was there de-escalation of care discussed even if they declined (Discuss DNR or withdrawal of care, Hospice)? DNR status @ -No What co-morbidities impacted this encounter? (DM, HTN, Smoking, COPD, CAD, Cancer, CVA, ARF, Chemo, Hep., AIDS, mental health diagnosis, sleep apnea, morbid obesity)? @ -None Was patient admitted / discharged? Hospital course, mention meds given and route, prescriptions, significant lab abnormalities, going to OR and other pertinent info. @ -Admitted patient presented for fever, nausea vomiting creasing pain with ureteral stent placed patient will be admitted for IV antibiotics Undiagnosed new problem with uncertain prognosis? @ -No Drug Therapy requiring intensive monitoring for toxicity (Heparin, Nitro, Insulin, Cardizem)? @ -No Were any procedures done? @ -No Diagnosis/symptom? @ -UTI, ureteral stent Acute, or Chronic, or Acute on Chronic? @ -Acute Uncomplicated (without systemic symptoms) or Complicated (systemic symptoms)? @ -Complicated Side effects of treatment? @ -No Exacerbation, Progression, or Severe Exacerbation? @ -No Poses a threat to life or bodily function? How? (Chest pain, [place], [place], pneumonia, PE, COPD, DKA, ARF, appy, cholecystitis, CVA, Diverticulitis, Homicidal, Suicidal, threat to staff... and all critical care pts) @ -No - Lab Data Result diagrams: 06/23/24 03:24 06/23/24 03:24 Lab Results 06/22/24 06/22/24 06/22/24 Range/Units 14:10 14:10 14:10 WBC 11.2 H (3.8-10.6) k/uL RBC 5.36 (3.80-5.40) m/uL Hgb 16.6 H (11.4-16.0) gm/dL Hct 48.6 H (34.0-46.0) % MCV 90.6 (80.0-100.0) fL MCH 30.9 (25.0-35.0) pg MCHC 34.1 (31.0-37.0) g/dL RDW 12.7 (11.5-15.5) % Plt Count 86 L (150-450) k/uL MPV 9.9 Neutrophils % 81 % Lymphocytes % 7 % Monocytes % 8 % Eosinophils % 2 % Basophils % 0 % Neutrophils # 9.1 H (1.3-7.7) k/uL Lymphocytes # 0.8 L (1.0-4.8) k/uL Monocytes # 0.9 (0-1.0) k/uL Eosinophils # 0.2 (0-0.7) k/uL Basophils # 0.0 (0-0.2) k/uL Manual Slide Review Performed RBC Morphology Normal Sodium 136 L (137-145) mmol/L Potassium 3.3 L (3.5-5.1) mmol/L Chloride 98 (98-107) mmol/L Carbon Dioxide 31 H (22-30) mmol/L Anion Gap 7 mmol/L BUN 21 H (7-17) mg/dL Creatinine 0.69 (0.52-1.04) mg/dL Est GFR (CKD-EPI)AfAm >90 (>60 ml/min/1.73 sqM) Est GFR (CKD-EPI)NonAf >90 (>60 ml/min/1.73 sqM) Glucose 102 H (74-99) mg/dL Plasma Lactic Acid Juan Manuel (0.7-2.0) mmol/L Calcium 9.6 (8.4-10.2) mg/dL Total Bilirubin 0.9 (0.2-1.3) mg/dL AST 26 (14-36) U/L ALT 21 (4-34) U/L Alkaline Phosphatase 54 (38-126) U/L Total Protein 7.4 (6.3-8.2) g/dL Albumin 4.4 (3.5-5.0) g/dL Lipase 60 (23-300) U/L Urine Color Red Urine Appearance Turbid H (Clear) Urine pH 6.0 (5.0-8.0) Ur Specific [place] 1.020 (1.001-1.035) Urine Protein 2+ H (Negative) Urine Glucose (UA) Negative (Negative) Urine Ketones 1+ H (Negative) Urine Blood Large H (Negative) Urine Nitrite Negative (Negative) Urine Bilirubin Negative (Negative) Urine Urobilinogen <2.0 (<2.0) mg/dL Ur Leukocyte Esterase Large H (Negative) Urine RBC >182 H (0-5) /hpf Urine WBC >182 H (0-5) /hpf Urine WBC Clumps Few H (None) /hpf Ur Squamous Epith Cells 30 H (0-4) /hpf Urine Bacteria Occasional H (None) /hpf Urine Mucus Few H (None) /hpf 06/22/24 Range/Units 14:10 WBC (3.8-10.6) k/uL RBC (3.80-5.40) m/uL Hgb (11.4-16.0) gm/dL Hct (34.0-46.0) % MCV (80.0-100.0) fL MCH (25.0-35.0) pg MCHC (31.0-37.0) g/dL RDW (11.5-15.5) % Plt Count (150-450) k/uL MPV Neutrophils % % Lymphocytes % % Monocytes % % Eosinophils % % Basophils % % Neutrophils # (1.3-7.7) k/uL Lymphocytes # (1.0-4.8) k/uL Monocytes # (0-1.0) k/uL Eosinophils # (0-0.7) k/uL Basophils # (0-0.2) k/uL Manual Slide Review RBC Morphology Sodium (137-145) mmol/L Potassium (3.5-5.1) mmol/L Chloride (98-107) mmol/L Carbon Dioxide (22-30) mmol/L Anion Gap mmol/L BUN (7-17) mg/dL Creatinine (0.52-1.04) mg/dL Est GFR (CKD-EPI)AfAm (>60 ml/min/1.73 sqM) Est GFR (CKD-EPI)NonAf (>60 ml/min/1.73 sqM) Glucose (74-99) mg/dL Plasma Lactic Acid Juan Manuel 1.4 (0.7-2.0) mmol/L Calcium (8.4-10.2) mg/dL Total Bilirubin (0.2-1.3) mg/dL AST (14-36) U/L ALT (4-34) U/L Alkaline Phosphatase (38-126) U/L Total Protein (6.3-8.2) g/dL Albumin (3.5-5.0) g/dL Lipase (23-300) U/L Urine Color Urine Appearance (Clear) Urine pH (5.0-8.0) Ur Specific [place] (1.001-1.035) Urine Protein (Negative) Urine Glucose (UA) (Negative) Urine Ketones (Negative) Urine Blood (Negative) Urine Nitrite (Negative) Urine Bilirubin (Negative) Urine Urobilinogen (<2.0) mg/dL Ur Leukocyte Esterase (Negative) Urine RBC (0-5) /hpf Urine WBC (0-5) /hpf Urine WBC Clumps (None) /hpf Ur Squamous Epith Cells (0-4) /hpf Urine Bacteria (None) /hpf Urine Mucus (None) /hpf Disposition Clinical Impression: Urinary tract infection, Ureteral stent present Disposition: ADMITTED IP TO THIS HOSP Condition: Fair Time of Disposition: 16:51
--- NOTE | 2024-06-22 15:06 | XR ---
EXAMINATION TYPE: XR KUB DATE OF EXAM: 06/22/2024 Comparison: 06/13/2024 Clinical History: 54-year-old female abdominal pain/stent Findings: Right ureteral stent is present. A 5 mm nonobstructive right renal stone. A few left-sided renal calc angel measuring up to 1.1 cm redemonstrated. Multiple pelvic phleboliths noted. Nonobstructive bowel ga s pattern. No significant stool burden. Lung bases are clear. No evidence for free intraperitoneal ai r. Impression: Right-sided ureteral stent. Bilateral nephrolithiasis measuring up to 1.1 cm on the left. Multiple pe lvic phleboliths. No evidence for free air or bowel obstruction.
[2024-06-22] MEDS: SODIUM CHLORIDE 0.9% 2,000 ML IV ONE (16:10)
[2024-06-22] MEDS: ONDANSETRON 4 MG/2 ML VIAL IVP STA (16:11)
[2024-06-22 16:12] LABS: Basophils % (A) 0 %; Eosinophils # (A) 0.2 k/uL (0-0.7); Eosinophils % (A) 2 %; HCT 48.6 % (34.0-46.0); HGB 16.6 gm/dL (11.4-16.0); Lymphocytes # (A) 0.8 k/uL (1.0-4.8); Lymphocytes % (A) 7 %; MCH 30.9 pg (25.0-35.0); MCHC 34.1 g/dL (31.0-37.0); MCV 90.6 fL (80.0-100.0); Mean Platelet Volume 9.9; Monocytes # (A) 0.9 k/uL (0-1.0); Monocytes % (A) 8 %; Neutrophils # (A) 9.1 k/uL (1.3-7.7); Neutrophils % (A) 81 %; RBC 5.36 m/uL (3.80-5.40); RDW 12.7 % (11.5-15.5); WBC 11.2 k/uL (3.8-10.6)
[2024-06-22] MEDS: KETOROLAC 15 MG/ML 1 ML VIAL IVP STA (16:14)
[2024-06-22] MEDS: ACETAMINOPHEN TAB 500 MG TAB PO STA (16:15)
[2024-06-22] MEDS: SODIUM CHLORIDE 0.9% 1,000 ML IV SCH (16:16)
[2024-06-22 16:27] LABS: Appearance,Urine Turbid (Clear); Bacteria,Urine Occasional /hpf; Bilirubin,Urine Negative (Negative); Blood,Urine Large (Negative); Color,Urine Red; Glucose,Urine (UA) Negative (Negative); Ketones,Urine 1+ (Negative); Leukocyte Esterase,Urine Large (Negative); Mucus,Urine Few /hpf; Nitrite,Urine Negative (Negative); Protein,Urine 2+ (Negative); RBC,Urine >182 /hpf (0-5); Squamous Epithelial Cell,Urine 30 /hpf (0-4); Urobilinogen,Urine <2.0 mg/dL (<2.0); WBC,Urine >182 /hpf (0-5)
[2024-06-22 16:29] LABS: ALT 21 U/L (4-34); AST 26 U/L (14-36); African American GFR (CKD) >90 (>60 ml/min/1.73 sqM); Albumin 4.4 g/dL (3.5-5.0); Alkaline Phosphatase 54 U/L (38-126); Anion Gap 7 mmol/L; Blood Urea Nitrogen 21 mg/dL (7-17); Calcium 9.6 mg/dL (8.4-10.2); Carbon Dioxide 31 mmol/L (22-30); Chloride 98 mmol/L (98-107); Glucose 102 mg/dL (74-99); Lipase 60 U/L (23-300); Non-African American GFR(CKD) >90 (>60 ml/min/1.73 sqM); Potassium 3.3 mmol/L (3.5-5.1); Sodium 136 mmol/L (137-145); Total Bilirubin 0.9 mg/dL (0.2-1.3); Total Protein 7.4 g/dL (6.3-8.2)
[2024-06-22 16:42] LABS: Platelet Count 86 k/uL (150-450)
[2024-06-22 16:43] LABS: RBC Morphology Normal
[2024-06-22] MEDS ORDERED: NALOXONE 0.4 MG/ML 1 ML VIAL IV PRN (16:52)
[2024-06-22] MEDS ORDERED: ONDANSETRON 4 MG/2 ML VIAL IVP PRN (16:52)
[2024-06-22] MEDS: METOCLOPRAMIDE 5 MG/ML 2 ML VIAL IVP STA (16:57)
[2024-06-22] MEDS: HYDROmorphone 0.5 MG/0.5 ML SYRINGE IVP PRN (17:02)
[2024-06-22] MEDS: lisinopriL 20 MG TAB PO SCH (21:24)
[2024-06-22] MEDS: FERROUS SULFATE 325 MG TAB PO SCH (21:24)
[2024-06-22] MEDS: CITALOPRAM HYDROBROMIDE 20 MG TAB PO SCH (21:24)
[2024-06-22] MEDS: ATORVASTATIN 80 MG TAB PO SCH (21:24)
[2024-06-22] MEDS: PANTOPRAZOLE 40 MG TABLET PO SCH (21:25)
[2024-06-22] MEDS: TAMSULOSIN 0.4 MG CAP.ER.24H PO SCH (21:25)
[2024-06-22] MEDS: METOPROLOL SUCCINATE (ER) 50 MG TAB.ER.24H PO SCH (21:25)
[2024-06-22] MEDS: MULTIVITAMINS, THERA 1 EACH TAB PO SCH (21:25)
[2024-06-22] MEDS: MAGNESIUM OXIDE 400 MG TAB PO SCH (21:25)
[2024-06-22] MEDS: ACETAMINOPHEN TAB 325 MG TAB PO PRN (23:54)
[2024-06-22] MEDS: KETOROLAC 15 MG/ML 1 ML VIAL IVP PRN (23:54)
[2024-06-22] MEDS: MELATONIN 5 MG TABLET PO SCH (23:54)
[2024-06-23 09:42] LABS: ALT 15 U/L (8-44); AST 16 U/L (13-35); Albumin 3.5 g/dL (3.8-4.9); Albumin/Globulin Ratio 1.59 Ratio (1.60-3.17); Alkaline Phosphatase 45 U/L (41-126); Blood Urea Nitrogen 18.3 mg/dL (9.0-27.0); Calcium 8.7 mg/dL (8.7-10.3); Carbon Dioxide 24.3 mmol/L (21.6-31.8); Chloride 104 mmol/L (96-109); Globulin 2.2 g/dL (1.6-3.3); Glucose 111 mg/dL (70-110); Potassium 3.5 mmol/L (3.5-5.5); Sodium 140 mmol/L (135-145); Total Bilirubin 0.4 mg/dL (0.3-1.2); Total Protein 5.7 g/dL (6.2-8.2)
[2024-06-23 10:00] LABS: Basophils # (A) 0.03 X 10*3/uL (0.00-0.10); Basophils % (A) 0.3 %; Eosinophils % (A) 1.2 %; HGB 13.4 g/dL (12.0-15.0); Immature Platelet Fraction 7.2 % (1.1-6.1); Lymphocytes % (A) 19.6 %; MCHC 32.7 g/dL (32.0-37.0); MCV 91.7 FL (80.0-97.0); Mean Platelet Volume 12.5 FL (9.5-12.2); Monocytes # (A) 0.98 X 10*3/uL (0.20-1.00); Monocytes % (A) 11.3 %; NRBC Per 100 WBC 0 X 10*3/uL (0.00-0.01); Neutrophils # (A) 5.84 X 10*3/uL (1.80-7.70); Neutrophils % (A) 67.4 %; Platelet Count 64 X 10*3/uL (140-440); RBC 4.47 X 10*6/uL (4.10-5.20); RDW 12.2 % (11.5-14.5); WBC 8.67 X 10*3/uL (4.50-10.00)
--- NOTE | 2024-06-23 10:49 | P.GSCN ---
History of Present Illness Consult date: 06/23/24 History of present illness: 54 yo female in the hospital with a febrile uti, right flank pain and nausea. SHe underwent a right ureteroscopy with laser lithotripsy with stent placement for ureteral and renal stones by Dr Solis 06/13/24. We were asked to see the patient. She had a fever of 100.4 and a wbc at 11.2 on admission. She feels better this am. SHe had a kub and the stent is in appropriate position. Review of Systems All systems: negative - Constitutional Denies fever, Denies weight loss - EENT Eyes: denies blurred vision Ears, nose, mouth and throat: Denies dysphagia - Cardiovascular Denies chest pain, Denies shortness of breath - Respiratory Denies cough, Denies 7 - Gastrointestinal Reports as per HPI - Genitourinary Genitourinary: Denies dysuria, Denies hematuria - Integumentary Denies rash, Denies unusual bruising - Neurological Denies headaches, Denies syncope - Hematologic/Lymphatic Denies easy bleeding, Denies easy bruising Past Medical History Past Medical History: Hyperlipidemia, Hypertension Additional Past Medical History / Comment(s): kidney stones, hx migraines History of Any Multi-Drug Resistant Organisms: None Reported Past Surgical History: No Surgical Hx Reported Additional Past Surgical History / Comment(s): lmupectomy from back, ureter stent Past Anesthesia/Blood Transfusion Reactions: No Reported Reaction Past Psychological History: Depression Smoking Status: Never smoker Past Alcohol Use History: None Reported Additional Past Alcohol Use History / Comment(s): smokes 1/2 ppd Past Drug Use History: None Reported - Past Family History Father Family Medical History: Diabetes Mellitus, Myocardial Infarction ([place]) Additional Family Medical History / Comment(s): Father at 56 of [place]. Mother Family Medical History: CVA/TIA, Diabetes Mellitus Medications and Allergies Home Medications Medication Instructions Recorded Confirmed Type Metoprolol Succinate [Toprol Xl] 50 mg PO HS 10/15/18 06/22/24 History Omeprazole 40 mg PO HS 10/15/18 06/22/24 History Black Cohosh (Unknown Dose) 1 tab PO HS 06/11/24 06/22/24 History Citalopram Hydrobromide 40 mg PO HS 06/11/24 06/22/24 History [Citalopram HBr] Evening [place] Oil (? Dose) 1 tab PO HS 06/11/24 06/22/24 History Ferrous Sulfate [Iron] 325 mg PO HS 06/11/24 06/22/24 History Magnesium Oxide [Magnesium] 500 mg PO HS 06/11/24 06/22/24 History Multivitamins, Thera [Multivitamin 1 tab PO HS 06/11/24 06/22/24 History (formulary)] Rosuvastatin Calcium 40 mg PO HS 06/11/24 06/22/24 History Tamsulosin HCl [Flomax] 0.4 mg PO HS 06/11/24 06/22/24 History Vitamin C/Biotin [Hair, Skin and 1 tab PO HS 06/11/24 06/22/24 History Nails Chew] Vitamin D (Unknown Dose) 1 tab PO 06/11/24 06/22/24 History Vitamin E (Unknown Dose) 1 tab PO 06/11/24 06/22/24 History lisinopriL 40 mg PO HS 06/11/24 06/22/24 History Ciprofloxacin HCl [Cipro] 500 mg PO BID 06/22/24 06/22/24 History Ondansetron Odt [Zofran Odt] 4 mg PO Q8HR PRN 06/22/24 06/22/24 History Allergies Allergy/AdvReac Type Severity Reaction Status Date / Time No Known Allergies Allergy Verified 06/22/24 17:10 Surgical - Exam Vital Signs Temp Pulse Resp BP Pulse Ox 100.4 F H 95 20 151/89 98 06/22/24 14:11 06/22/24 14:11 06/22/24 14:11 06/22/24 14:11 06/22/24 14:11 Results - Labs 06/23/24 03:24 06/23/24 03:24 Abnormal Lab Results - Last 24 Hours (Table) 06/22/24 06/22/24 06/22/24 Range/Units 14:10 14:10 14:10 WBC 11.2 H (3.8-10.6) k/uL Hgb 16.6 H (11.4-16.0) gm/dL Hct 48.6 H (34.0-46.0) % Plt Count 86 L (150-450) k/uL Neutrophils # 9.1 H (1.3-7.7) k/uL Lymphocytes # 0.8 L (1.0-4.8) k/uL Sodium 136 L (137-145) mmol/L Potassium 3.3 L (3.5-5.1) mmol/L Carbon Dioxide 31 H (22-30) mmol/L BUN 21 H (7-17) mg/dL Glucose 102 H (74-99) mg/dL Urine Appearance Turbid H (Clear) Urine Protein 2+ H (Negative) Urine Ketones 1+ H (Negative) Urine Blood Large H (Negative) Ur Leukocyte Esterase Large H (Negative) Urine RBC >182 H (0-5) /hpf Urine WBC >182 H (0-5) /hpf Urine WBC Clumps Few H (None) /hpf Ur Squamous Epith Cells 30 H (0-4) /hpf Urine Bacteria Occasional H (None) /hpf Urine Mucus Few H (None) /hpf Diabetes panel 06/22/24 Range/Units 14:10 Sodium 136 L (137-145) mmol/L Potassium 3.3 L (3.5-5.1) mmol/L Chloride 98 (98-107) mmol/L Carbon Dioxide 31 H (22-30) mmol/L BUN 21 H (7-17) mg/dL Creatinine 0.69 (0.52-1.04) mg/dL Glucose 102 H (74-99) mg/dL Calcium 9.6 (8.4-10.2) mg/dL AST 26 (14-36) U/L ALT 21 (4-34) U/L Alkaline Phosphatase 54 (38-126) U/L Total Protein 7.4 (6.3-8.2) g/dL Albumin 4.4 (3.5-5.0) g/dL Calcium panel 06/22/24 Range/Units 14:10 Calcium 9.6 (8.4-10.2) mg/dL Albumin 4.4 (3.5-5.0) g/dL Pituitary panel 06/22/24 Range/Units 14:10 Sodium 136 L (137-145) mmol/L Potassium 3.3 L (3.5-5.1) mmol/L Chloride 98 (98-107) mmol/L Carbon Dioxide 31 H (22-30) mmol/L BUN 21 H (7-17) mg/dL Creatinine 0.69 (0.52-1.04) mg/dL Glucose 102 H (74-99) mg/dL Calcium 9.6 (8.4-10.2) mg/dL Adrenal panel 06/22/24 Range/Units 14:10 Sodium 136 L (137-145) mmol/L Potassium 3.3 L (3.5-5.1) mmol/L Chloride 98 (98-107) mmol/L Carbon Dioxide 31 H (22-30) mmol/L BUN 21 H (7-17) mg/dL Creatinine 0.69 (0.52-1.04) mg/dL Glucose 102 H (74-99) mg/dL Calcium 9.6 (8.4-10.2) mg/dL Total Bilirubin 0.9 (0.2-1.3) mg/dL AST 26 (14-36) U/L ALT 21 (4-34) U/L Alkaline Phosphatase 54 (38-126) U/L Total Protein 7.4 (6.3-8.2) g/dL Albumin 4.4 (3.5-5.0) g/dL - Imaging Abdominal x-ray: report reviewed, image reviewed Assessment and Plan Assessment: Impression: uti with sepsis post right ureteroscopy with laser lithotripsy Plan: antibiotics and cultures as you have done. The stent should remain in place for now until the infection has been treated. It will be removed at a later date in the office by Dr Solis
[2024-06-23] MEDS: PROCHLORPERAZINE 5 MG TAB PO STA (12:43)
--- NOTE | 2024-06-23 15:02 | P.HPIM ---
History of Present Illness H&P Date: 06/22/24 Chief Complaint: Abdomen/flank pain and headache 54-year-old female presents emergency department chief complaint of fever, abdominal pain. Patient states she had a stent placed last week by Dr. Solis for kidney stone. Patient states that she started having urinary frequency, fever, flank pain. She was placed on Zofran and Cipro and Flomax yesterday states symptoms are worse today she feels dehydrated she has not been able to keep anything down she had increasing nausea vomiting. She states that she has noticed increasing blood in her urine Patient underwent a right ureteroscopy with laser lithotripsy with stent placement for ureteral and renal stones by Dr Solis 06/13/24. In the ED patient had a fever of 100.4 and a wbc at 11.2 on admission. Patient had KUB completed in ED which revealed stent in appropriate place Blood work reveals WBC of 11.2, hemoglobin of 16.6 and platelet count of 86, sodium 136, potassium 3.3, BUNs/creatinine of 21/0.69, UA reveals blood, urine esterase, WBCs and bacteria -Patient was discussed with urology and was recommended to be placed on antibiotic therapy with urology consult for further evaluation Review of Systems REVIEW OF SYSTEMS: CONSTITUTIONAL: Complains of headache. HEENT: No recent visual problems or hearing problems. Denied any sore throat. CARDIOVASCULAR: No chest pain, orthopnea, PND, no palpitations, no syncope. PULMONARY: No shortness of breath, no cough, no hemoptysis. GASTROINTESTINAL: No diarrhea, no nausea, no vomiting, no abdominal pain. NEUROLOGICAL: No headaches, no weakness, no numbness. HEMATOLOGICAL: Denies any bleeding or petechiae. GENITOURINARY: Denies any burning micturition, frequency, or urgency. MUSCULOSKELETAL/RHEUMATOLOGICAL: Denies any joint pain, swelling, or any muscle pain. ENDOCRINE: Denies any polyuria or polydipsia. The rest of the 14-point review of systems is negative. Past Medical History Past Medical History: Hyperlipidemia, Hypertension Additional Past Medical History / Comment(s): kidney stones, hx migraines History of Any Multi-Drug Resistant Organisms: None Reported Past Surgical History: No Surgical Hx Reported Additional Past Surgical History / Comment(s): lmupectomy from back, ureter stent Past Anesthesia/Blood Transfusion Reactions: No Reported Reaction Past Alcohol Use History: None Reported Additional Past Alcohol Use History / Comment(s): smokes 1/2 ppd Past Drug Use History: None Reported - Past Family History Father Family Medical History: Diabetes Mellitus, Myocardial Infarction ([place]) Additional Family Medical History / Comment(s): Father at 56 of [place]. Mother Family Medical History: CVA/TIA, Diabetes Mellitus Medications and Allergies Home Medications Medication Instructions Recorded Confirmed Type Metoprolol Succinate [Toprol Xl] 50 mg PO HS 10/15/18 06/22/24 History Omeprazole 40 mg PO HS 10/15/18 06/22/24 History Black Cohosh (Unknown Dose) 1 tab PO HS 06/11/24 06/22/24 History Citalopram Hydrobromide 40 mg PO HS 06/11/24 06/22/24 History [Citalopram HBr] Evening [place] Oil (? Dose) 1 tab PO HS 06/11/24 06/22/24 History Ferrous Sulfate [Iron] 325 mg PO HS 06/11/24 06/22/24 History Magnesium Oxide [Magnesium] 500 mg PO HS 06/11/24 06/22/24 History Multivitamins, Thera [Multivitamin 1 tab PO HS 06/11/24 06/22/24 History (formulary)] Rosuvastatin Calcium 40 mg PO HS 06/11/24 06/22/24 History Tamsulosin HCl [Flomax] 0.4 mg PO HS 06/11/24 06/22/24 History Vitamin C/Biotin [Hair, Skin and 1 tab PO HS 06/11/24 06/22/24 History Nails Chew] Vitamin D (Unknown Dose) 1 tab PO 06/11/24 06/22/24 History Vitamin E (Unknown Dose) 1 tab PO 06/11/24 06/22/24 History lisinopriL 40 mg PO HS 06/11/24 06/22/24 History Ciprofloxacin HCl [Cipro] 500 mg PO BID 06/22/24 06/22/24 History Ondansetron Odt [Zofran Odt] 4 mg PO Q8HR PRN 06/22/24 06/22/24 History Allergies Allergy/AdvReac Type Severity Reaction Status Date / Time No Known Allergies Allergy Verified 06/22/24 17:10 Physical Exam Vitals: Vital Signs Temp Pulse Resp BP Pulse Ox 06/22/24 16:55 100 F H 79 20 138/87 95 06/22/24 14:11 100.4 F H 95 20 151/89 98 Intake and Output 06/22/24 06/22/24 06/22/24 06:59 14:59 22:59 Other: Weight 99.79 kg Results CBC & Chem 7: 06/23/24 03:24 06/23/24 03:24 Labs: Abnormal Lab Results - Last 24 Hours (Table) 06/22/24 06/22/24 06/22/24 Range/Units 14:10 14:10 14:10 WBC 11.2 H (3.8-10.6) k/uL Hgb 16.6 H (11.4-16.0) gm/dL Hct 48.6 H (34.0-46.0) % Plt Count 86 L (150-450) k/uL Neutrophils # 9.1 H (1.3-7.7) k/uL Lymphocytes # 0.8 L (1.0-4.8) k/uL Sodium 136 L (137-145) mmol/L Potassium 3.3 L (3.5-5.1) mmol/L Carbon Dioxide 31 H (22-30) mmol/L BUN 21 H (7-17) mg/dL Glucose 102 H (74-99) mg/dL Urine Appearance Turbid H (Clear) Urine Protein 2+ H (Negative) Urine Ketones 1+ H (Negative) Urine Blood Large H (Negative) Ur Leukocyte Esterase Large H (Negative) Urine RBC >182 H (0-5) /hpf Urine WBC >182 H (0-5) /hpf Urine WBC Clumps Few H (None) /hpf Ur Squamous Epith Cells 30 H (0-4) /hpf Urine Bacteria Occasional H (None) /hpf Urine Mucus Few H (None) /hpf Assessment and Plan Assessment: 1. UTI; status post ureteral stent placement -Patient underwent ureteral stent placement on 06/13/2024 -Has been placed on IV antibiotics in form of Rocephin; IV fluids normal saline at rate of 75 cc an hour -Consult urology -Blood culture and urine culture obtained with plans to adjust antibiotic therapy once results are available 2. Obstructing right renal calculus - patient is status post cystoscopy and ureteral stent placement for right-sided hydronephrosis and obstructing renal calculus -KUB reveals stent to be in good place; hydronephrosis; we will continue with Flomax 0.4 mg daily -Urology to evaluate and make further recommendations 3. Mild CARSON; patient has been placed on IV fluids; will monitor strict MADELEINE's, daily weights, renal function electrolytes; avoid nephrotoxins and hypotension 4. Hypokalemia; supplemented in ED; monitor electrolytes and supplement as needed 5. Thrombocytopenia; chronic; we will monitor platelet count 6. Hypertension; patient takes lisinopril 40 mg daily and metoprolol 50 mg daily; we will continue with current antihypertensive therapy with plans to hold lisinopril if renal function worsens 7. Hyperlipidemia; Crestor 40 mg p.o. nightly DVT prophylaxis; SCDs only given thrombocytopenia CODE STATUS; full code
--- NOTE | 2024-06-23 15:05 | P.PN ---
Subjective 54-year-old female presents emergency department chief complaint of fever, abdominal pain. Patient states she had a stent placed last week by Dr. Solis for kidney stone. Patient states that she started having urinary frequency, fever, flank pain. She was placed on Zofran and Cipro and Flomax yesterday states symptoms are worse today she feels dehydrated she has not been able to keep anything down she had increasing nausea vomiting. She states that she has noticed increasing blood in her urine Patient underwent a right ureteroscopy with laser lithotripsy with stent placement for ureteral and renal stones by Dr Solis 06/13/24. In the ED patient had a fever of 100.4 and a wbc at 11.2 on admission. Patient had KUB completed in ED which revealed stent in appropriate place Blood work reveals WBC of 11.2, hemoglobin of 16.6 and platelet count of 86, sodium 136, potassium 3.3, BUNs/creatinine of 21/0.69, UA reveals blood, urine esterase, WBCs and bacteria -Patient was discussed with urology and was recommended to be placed on antibi otic therapy with urology consult for further evaluation --Patient reports marked improvement in pain; white blood count down to normal at 8.7; platelet count trending down to 64 from 86 yesterday; electrolytes are reviewed and remained stable -Patient has been evaluated by urology and recommended to continue with IV antibiotics; plans for further evaluation and intervention by urology as an outp atient once infection is under control Objective - Vital Signs Vital signs: Vital Signs Temp 98.3 F 06/23/24 07:00 Pulse 60 06/23/24 08:00 Resp 16 06/23/24 08:00 BP 136/86 06/23/24 07:00 Pulse Ox 97 06/23/24 07:00 FiO2 Intake & Output 06/22/24 06/23/24 06/23/24 18:59 06:59 18:59 Intake Total 300 300 Balance 300 300 Weight 99.79 kg 99.79 kg Intake: Oral 300 300 Other: # Voids 2 1 - Exam GENERAL: The patient is alert and oriented x3, not in any acute distress. Well developed, well nourished. HEENT: Pupils are round and equally reacting to light. EOMI. No scleral icterus. No conjunctival pallor. Normocephalic, atraumatic. No pharyngeal erythema. No thyromegaly. CARDIOVASCULAR: S1 and S2 present. No murmurs, rubs, or gallops. PULMONARY: Chest is clear to auscultation, no wheezing or crackles. ABDOMEN: Soft, nontender, nondistended, normoactive bowel sounds. No palpable organomegaly. MUSCULOSKELETAL: No joint swelling or deformity. EXTREMITIES: No cyanosis, clubbing, or pedal edema. NEUROLOGICAL: Gross neurological examination did not reveal any focal deficits. SKIN: No rashes. - Labs CBC & Chem 7: 06/23/24 03:24 06/23/24 03:24 Labs: Abnormal Lab Results - Last 24 Hours (Table) 06/22/24 06/22/24 06/22/24 Range/Units 14:10 14:10 14:10 WBC 11.2 H (3.8-10.6) k/uL Hgb 16.6 H (11.4-16.0) gm/dL Hct 48.6 H (34.0-46.0) % Plt Count 86 L (150-450) k/uL MPV (9.5-12.2) FL Neutrophils # 9.1 H (1.3-7.7) k/uL Lymphocytes # 0.8 L (1.0-4.8) k/uL Immature Plt Fraction (1.1-6.1) % Sodium 136 L (137-145) mmol/L Potassium 3.3 L (3.5-5.1) mmol/L Carbon Dioxide 31 H (22-30) mmol/L BUN 21 H (7-17) mg/dL Creatinine (0.6-1.5) mg/dL BUN/Creatinine Ratio (12.00-20.00) Ratio Glucose 102 H (74-99) mg/dL Total Protein (6.2-8.2) g/dL Albumin (3.8-4.9) g/dL Albumin/Globulin Ratio (1.60-3.17) Ratio Urine Appearance Turbid H (Clear) Urine Protein 2+ H (Negative) Urine Ketones 1+ H (Negative) Urine Blood Large H (Negative) Ur Leukocyte Esterase Large H (Negative) Urine RBC >182 H (0-5) /hpf Urine WBC >182 H (0-5) /hpf Urine WBC Clumps Few H (None) /hpf Ur Squamous Epith Cells 30 H (0-4) /hpf Urine Bacteria Occasional H (None) /hpf Urine Mucus Few H (None) /hpf 06/23/24 06/23/24 Range/Units 03:24 03:24 WBC (3.8-10.6) k/uL Hgb (11.4-16.0) gm/dL Hct (34.0-46.0) % Plt Count 64 L (150-450) k/uL MPV 12.5 H (9.5-12.2) FL Neutrophils # (1.3-7.7) k/uL Lymphocytes # (1.0-4.8) k/uL Immature Plt Fraction 7.2 H (1.1-6.1) % Sodium (137-145) mmol/L Potassium (3.5-5.1) mmol/L Carbon Dioxide (22-30) mmol/L BUN (7-17) mg/dL Creatinine 0.5 L (0.6-1.5) mg/dL BUN/Creatinine Ratio 36.60 H (12.00-20.00) Ratio Glucose 111 H (74-99) mg/dL Total Protein 5.7 L (6.2-8.2) g/dL Albumin 3.5 L (3.8-4.9) g/dL Albumin/Globulin Ratio 1.59 L (1.60-3.17) Ratio Urine Appearance (Clear) Urine Protein (Negative) Urine Ketones (Negative) Urine Blood (Negative) Ur Leukocyte Esterase (Negative) Urine RBC (0-5) /hpf Urine WBC (0-5) /hpf Urine WBC Clumps (None) /hpf Ur Squamous Epith Cells (0-4) /hpf Urine Bacteria (None) /hpf Urine Mucus (None) /hpf Assessment and Plan Assessment: 1. UTI; status post ureteral stent placement -Patient underwent ureteral stent placement on 06/13/2024 -Has been placed on IV antibiotics in form of Rocephin; IV fluids normal saline at rate of 75 cc an hour -Consult urology -Blood culture and urine culture obtained with plans to adjust antibiotic therapy once results are available 2. Obstructing right renal calculus - patient is status post cystoscopy and ureteral stent placement for right-sided hydronephrosis and obstructing renal calculus -KUB reveals stent to be in good place; hydronephrosis; we will continue with Flomax 0.4 mg daily -Urology to evaluate and make further recommendations 3. Mild CARSON; patient has been placed on IV fluids; will monitor strict MADELEINE's, daily weights, renal function electrolytes; avoid nephrotoxins and hypotension 4. Hypokalemia; supplemented in ED; monitor electrolytes and supplement as needed 5. Thrombocytopenia; chronic; we will monitor platelet count 6. Hypertension; patient takes lisinopril 40 mg daily and metoprolol 50 mg daily; we will continue with current antihypertensive therapy with plans to hold lisinopril if renal function worsens 7. Hyperlipidemia; Crestor 40 mg p.o. nightly DVT prophylaxis; SCDs only given thrombocytopenia CODE STATUS; full code
[2024-06-24] MEDS ORDERED: SODIUM CHLORIDE 0.9% 1,000 ML BAG ONE (00:01)
[2024-06-24] MEDS ORDERED: SODIUM CHLORIDE 0.9% 50 ML BAG ONE (00:01)
[2024-06-24 07:31] VITALS: BP 124/81; PULSE 57; RESP 15; TEMP 98.7
[2024-06-24] MEDS ORDERED: SODIUM CHLORIDE 0.9% 50 ML ONE ×2 (08:00)
[2024-06-24] MEDS ORDERED: cefTRIAXone 2 GM VIAL ONE ×2 (08:00)
[2024-06-24] MEDS ORDERED: TAMSULOSIN 0.4 MG CAP.ER.24H PO ONE (20:11)
[2024-06-24] MEDS ORDERED: METOPROLOL SUCCINATE (ER) 50 MG TAB.ER.24H PO ONE (20:11)
[2024-06-24] MEDS ORDERED: lisinopriL 20 MG TAB ONE (20:11)
[2024-06-24] MEDS ORDERED: CITALOPRAM HYDROBROMIDE 20 MG TAB ONE (20:11)
[2024-06-24] MEDS ORDERED: MELATONIN 5 MG TABLET ONE (20:11)
[2024-06-24] MEDS ORDERED: ATORVASTATIN 80 MG TAB ONE (20:12)
[2024-06-24] MEDS ORDERED: MULTIVITAMINS, THERA 1 EACH TAB ONE (20:12)
[2024-06-24] MEDS ORDERED: PANTOPRAZOLE 40 MG TABLET PO ONE (20:12)
[2024-06-24] MEDS ORDERED: FERROUS SULFATE 325 MG TAB PO ONE (20:12)
[2024-06-24] MEDS ORDERED: MAGNESIUM OXIDE 400 MG TAB ONE (20:12)
[2024-06-24] MEDS ORDERED: ACETAMINOPHEN TAB 325 MG TAB ONE (20:39)
[2024-06-25] MEDS ORDERED: SODIUM CHLORIDE 0.9% 50 ML BAG ONE (00:01)
[2024-06-25] MEDS ORDERED: cefTRIAXone 2 GM VIAL ONE (08:38)
[2024-06-25] MEDS ORDERED: SODIUM CHLORIDE 0.9% 50 ML ONE (08:38)
== END 2024-06-25 13:24 | disposition home or self-care (01) ==
LOC: EC 13:15 → 6NMEDSUR 18:31
PROVIDERS: ADMIT Internal Medicine; ATTEND Internal Medicine
DX: A41.9 Sepsis, unspecified organism (principal); N39.0 Urinary tract infection, site not specified; N20.0 Calculus of kidney; N17.9 Acute kidney failure, unspecified; E87.6 Hypokalemia; D69.6 Thrombocytopenia, unspecified; I10 Essential (primary) hypertension; E78.5 Hyperlipidemia, unspecified; F32.A Depression, unspecified; Z96.0 Presence of urogenital implants; Z79.899 Other long term (current) drug therapy
CPT/HCPCS: 36415; 80053 ×2; 83605; 83690; 85025 ×2; 81001; 87040; 87086; 74018; S0183; J2765; J2405; J0696 ×2; J1885 ×2; J1170; 80048; 87077; 87186; 96361; 96365; 96366; 96375; 96376; 99285

== ENCOUNTER 2024-08-17 21:35 | Inpatient (IN) | payer OTHER ==
--- NOTE | 2024-08-17 22:15 | ED ---
Nausea/Vomiting/Diarrhea HPI - General Chief complaint: Nausea/Vomiting/Diarrhea Stated complaint: Headache, vomiting, SOB Time Seen by Provider: 08/17/24 21:48 Source: patient, RN notes reviewed Mode of arrival: ambulatory Limitations: no limitations - History of Present Illness Initial comments: This is a 54-year-old female presents emergency department chief complaint of nausea, vomiting, headaches and chills that started yesterday evening. Distally patient states that she has been using the restroom more frequently and having a burning sensation while urinating. Patient states that she has a history of complicated urinary tract infections and states that the symptoms feel similar to when she has had issues in the past. Patient has seen a urologist as well and was admitted to the hospital earlier this year for a septic kidney stone. Denies bowel changes. Denies abdominal pain. Denies cough, runny nose, congestion. - Related Data Home Medications Medication Instructions Recorded Confirmed Metoprolol Succinate [Toprol Xl] 50 mg PO HS 10/15/18 08/18/24 Omeprazole 40 mg PO HS 10/15/18 08/18/24 Citalopram Hydrobromide 40 mg PO HS 06/11/24 08/18/24 [Citalopram HBr] Ferrous Sulfate [Iron] 325 mg PO HS 06/11/24 08/18/24 Rosuvastatin Calcium 40 mg PO HS 06/11/24 08/18/24 lisinopriL 40 mg PO HS 06/11/24 08/18/24 Ondansetron Odt [Zofran Odt] 4 mg PO Q8HR PRN 06/22/24 08/18/24 ALPRAZolam [Xanax] 0.5 mg PO DAILY PRN 08/18/24 08/18/24 Ibuprofen [Motrin] 800 mg PO Q8H PRN 08/18/24 08/18/24 Allergies Allergy/AdvReac Type Severity Reaction Status Date / Time No Known Allergies Allergy Verified 08/18/24 08:31 Review of Systems ROS Statement: Those systems with pertinent positive or pertinent negative responses have been documented in the HPI. ROS Other: All systems not noted in ROS Statement are negative. Past Medical History Past Medical History: Hyperlipidemia, Hypertension Additional Past Medical History / Comment(s): kidney stones, hx migraines History of Any Multi-Drug Resistant Organisms: None Reported Past Surgical History: No Surgical Hx Reported Additional Past Surgical History / Comment(s): lmupectomy from back, ureter stent Past Anesthesia/Blood Transfusion Reactions: No Reported Reaction Past Psychological History: Depression Smoking Status: Never smoker Past Alcohol Use History: Occasional Past Drug Use History: Marijuana - Past Family History Father Family Medical History: Diabetes Mellitus, Myocardial Infarction ([place]) Additional Family Medical History / Comment(s): Father at 56 of [place]. Mother Family Medical History: CVA/TIA, Diabetes Mellitus General Exam Limitations: no limitations General appearance: alert, in no apparent distress Eye exam: Present: normal appearance, PERRL, EOMI. Absent: scleral icterus, conjunctival injection, periorbital swelling ENT exam: Present: normal exam, mucous membranes moist Neck exam: Present: normal inspection. Absent: tenderness, meningismus, lymphadenopathy Respiratory exam: Present: normal lung sounds bilaterally. Absent: respiratory distress, wheezes, rales, rhonchi, stridor Cardiovascular Exam: Present: regular rate, normal rhythm, normal heart sounds. Absent: systolic murmur, diastolic murmur, rubs, gallop, clicks GI/Abdominal exam: Present: soft, normal bowel sounds. Absent: distended, ten derness, guarding, rebound, rigid Extremities exam: Present: normal inspection, full ROM, normal capillary refill. Absent: tenderness, pedal edema, joint swelling, calf tenderness Back exam: Present: normal inspection Skin exam: Present: warm, dry, intact, normal color. Absent: rash Course Vital Signs 08/17/24 08/17/24 08/18/24 21:45 23:27 01:06 Temperature 100.9 F H 99.1 F Pulse Rate 117 H Respiratory 20 18 Rate Blood Pressure 127/80 115/81 O2 Sat by Pulse 98 Oximetry 08/18/24 05:51 Temperature 98.2 F Pulse Rate 65 Respiratory 18 Rate Blood Pressure 134/88 O2 Sat by Pulse 95 Oximetry Medical Decision Making - Medical Decision Making Was pt. sent in by a medical professional or institution (, PA, USED CAR LOT ATTENDANT, urgent care, hospital, or senior living...) When possible be specific @ -No Did you speak to anyone other than the patient for history (EMS, parent, family, police, friend...)? What history was obtained from this source @ -No Did you review nursing and triage notes (agree or disagree)? Why? @ -I reviewed and agree with nursing and triage notes Were old charts reviewed (outside hosp., previous admission, EMS record, old EKG, old radiological studies, urgent care reports/EKG's, senior living records)? Report findings @ -Due to patient's previous emergency department visit note where she was admitted to the hospital for a septic stone and urology was consulted where a ureteral stent was placed and patient was admitted with IV antibiotics on board. Reviewed patient's urine culture that was completed in June 2024 that was growing E. coli and Rocephin is susceptible to this bacteria Differential Diagnosis (chest pain, altered mental status, abdominal pain women, abdominal pain men, vaginal bleeding, weakness, fever, dyspnea, syncope, headache, dizziness, GI bleed, back pain, seizure, CVA, palpatations, mental health, musculoskeletal)? @ -Differential Abdominal Pain Women: Appendicitis, Cholecystitis, diverticulosis, ischemic bowel, pancreatitis, hepatitis, UTI, gastroenteritis, AAA, incarcerated hernia, bowel obstruction, constipation, inflammatory bowel, hepatitis, peptic ulcer disease, splenic infarction, perforated viscus, vulvitis, ovarian torsion, PID, kidney stone, placenta abruption, this is not meant to be an all-inclusive list EKG interpreted by me (3pts min.). @ -Completed at 2217 sinus cardia with a ventricular rate of 102, parable 169, QRS 92, QTc 392. This is an abnormal appearing EKG however there are no previous EKGs to compare this to. X-rays interpreted by me (1pt min.). @ -None done CT interpreted by me (1pt min.). @ -CT of the abdomen pelvis without contrast reveals a 1.1 cm obstructing calculus in the left renal pelvis causing left hydronephrosis with fat stranding about the left Vance phrenic space with numerous bilateral nonobstructing renal calculi noted. U/S interpreted by me (1pt. min.). @ -None done What testing was considered but not performed or refused? (CT, X-rays, U/S, labs)? Why? @ -None What meds were considered but not given or refused? Why? @ -None Did you discuss the management of the patient with other professionals (professionals i.e. , PA, USED CAR LOT ATTENDANT, lab, RT, psych nurse, outreach and education social worker, entertainment lawyer, teacher, air defense artillery officer, outpatient case manager)? Give summary @ -internal medicine in regard to admission Was smoking cessation discussed for >3mins.? @ -No Was critical care preformed (if so, how long)? @ -No Were there social determinants of health that impacted care today? How? (Homelessness, low income, unemployed, alcoholism, drug addiction, transportation, low edu. Level, literacy, decrease access to med. care, shelter, rehab)? @ -No Was there de-escalation of care discussed even if they declined (Discuss DNR or withdrawal of care, Hospice)? DNR status @ -No What co-morbidities impacted this encounter? (DM, HTN, Smoking, COPD, CAD, Cance r, CVA, ARF, Chemo, Hep., AIDS, mental health diagnosis, sleep apnea, morbid obesity)? @ -None Was patient admitted / discharged? Hospital course, mention meds given and route, prescriptions, significant lab abnormalities, going to OR and other pertinent info. @ -54-year-old female with nausea, vomiting, headache and chills. On patient's arrival to emergency department she has noted to be tachycardic and have a low- grade fever 100.9. Patient's abdominal examination is benign. There is no CVA tenderness. Patient is symptomatically treated with IV fluids, antiemetics, analgesics and Tylenol pending laboratory results. CBC reveals leukocytosis 16.3, neutrophils of 14, CMP hyponatremia 35, hypokalemia 3.2, troponin not elevated less than 0.012, pancreatic enzymes within normal limits, urinalysis unremarkable for infection including nitrites, leukocyte esterase, white cells, red cells and white blood cell clumps. cephid is negative. Was provided with dose of Rocephin for urinary tract infection. Patient will be admitted to internal medicine with urology on consult for further evaluation of septic stone. discussed with Dr. Hidalgo Undiagnosed new problem with uncertain prognosis? @ -No Drug Therapy requiring intensive monitoring for toxicity (Heparin, Nitro, Insulin, Cardizem)? @ -No Were any procedures done? @ -No Diagnosis/symptom? @ -Septic ureteral stone Acute, or Chronic, or Acute on Chronic? @ -Acute Uncomplicated (without systemic symptoms) or Complicated (systemic symptoms)? @ -Complicated Side effects of treatment? @ -No Exacerbation, Progression, or Severe Exacerbation? @ -No Poses a threat to life or bodily function? How? (Chest pain, [place], [place], pneumonia, PE, COPD, DKA, ARF, appy, cholecystitis, CVA, Diverticulitis, Homicidal, Suicidal, threat to staff... and all critical care pts) @ -No - Lab Data Result diagrams: 08/17/24 22:25 08/17/24 22:25 Lab Results 08/17/24 08/17/24 08/17/24 Range/Units 21:55 21:55 22:25 WBC 16.3 H (3.8-10.6) k/uL RBC 5.27 (3.80-5.40) m/uL Hgb 15.4 (11.4-16.0) gm/dL Hct 47.1 H (34.0-46.0) % MCV 89.2 (80.0-100.0) fL MCH 29.2 (25.0-35.0) pg MCHC 32.7 (31.0-37.0) g/dL RDW 13.4 (11.5-15.5) % Plt Count 77 L (150-450) k/uL MPV 9.7 Neutrophils % 86 % Lymphocytes % 5 % Monocytes % 6 % Eosinophils % 1 % Basophils % 0 % Neutrophils # 14.0 H (1.3-7.7) k/uL Lymphocytes # 0.9 L (1.0-4.8) k/uL Monocytes # 0.9 (0-1.0) k/uL Eosinophils # 0.2 (0-0.7) k/uL Basophils # 0.0 (0-0.2) k/uL Manual Slide Review Performed PT (10.0-12.5) sec INR (<1.2) APTT (22.0-30.0) sec Sodium (137-145) mmol/L Potassium (3.5-5.1) mmol/L Chloride (98-107) mmol/L Carbon Dioxide (22-30) mmol/L Anion Gap mmol/L BUN (7-17) mg/dL Creatinine (0.52-1.04) mg/dL Est GFR (CKD-EPI)AfAm (>60 ml/min/1.73 sqM) Est GFR (CKD-EPI)NonAf (>60 ml/min/1.73 sqM) Glucose (74-99) mg/dL Plasma Lactic Acid Juan Manuel (0.7-2.0) mmol/L Calcium (8.4-10.2) mg/dL Total Bilirubin (0.2-1.3) mg/dL AST (14-36) U/L ALT (4-34) U/L Alkaline Phosphatase (38-126) U/L Troponin I (0.000-0.034) ng/mL Total Protein (6.3-8.2) g/dL Albumin (3.5-5.0) g/dL Amylase (30-110) U/L Lipase (23-300) U/L Urine Color Light Red Urine Appearance Turbid H (Clear) Urine pH 6.0 (5.0-8.0) Ur Specific [place] 1.016 (1.001-1.035) Urine Protein 3+ H (Negative) Urine Glucose (UA) Negative (Negative) Urine Ketones 1+ H (Negative) Urine Blood Large H (Negative) Urine Nitrite Positive H (Negative) Urine Bilirubin Negative (Negative) Urine Urobilinogen <2.0 (<2.0) mg/dL Ur Leukocyte Esterase Large H (Negative) Urine RBC >182 H (0-5) /hpf Urine WBC >182 H (0-5) /hpf Urine WBC Clumps Few H (None) /hpf Ur Squamous Epith Cells 28 H (0-4) /hpf Urine Bacteria Many H (None) /hpf Hyaline Casts 7 H (0-2) /lpf Urine Mucus Many H (None) /hpf Influenza Type A (PCR) Not Detected (Not Detectd) Influenza Type B (PCR) Not Detected (Not Detectd) RSV (PCR) Not Detected (Not Detectd) SARS-CoV-2 (PCR) Not Detected (Not Detectd) 08/17/24 08/17/24 08/17/24 Range/Units 22:25 22:25 22:25 WBC (3.8-10.6) k/uL RBC (3.80-5.40) m/uL Hgb (11.4-16.0) gm/dL Hct (34.0-46.0) % MCV (80.0-100.0) fL MCH (25.0-35.0) pg MCHC (31.0-37.0) g/dL RDW (11.5-15.5) % Plt Count (150-450) k/uL MPV Neutrophils % % Lymphocytes % % Monocytes % % Eosinophils % % Basophils % % Neutrophils # (1.3-7.7) k/uL Lymphocytes # (1.0-4.8) k/uL Monocytes # (0-1.0) k/uL Eosinophils # (0-0.7) k/uL Basophils # (0-0.2) k/uL Manual Slide Review PT (10.0-12.5) sec INR (<1.2) APTT (22.0-30.0) sec Sodium 135 L (137-145) mmol/L Potassium 3.2 L (3.5-5.1) mmol/L Chloride 101 (98-107) mmol/L Carbon Dioxide 24 (22-30) mmol/L Anion Gap 10 mmol/L BUN 18 H (7-17) mg/dL Creatinine 0.81 (0.52-1.04) mg/dL Est GFR (CKD-EPI)AfAm >90 (>60 ml/min/1.73 sqM) Est GFR (CKD-EPI)NonAf 82 (>60 ml/min/1.73 sqM) Glucose 123 H (74-99) mg/dL Plasma Lactic Acid Juan Manuel 1.4 (0.7-2.0) mmol/L Calcium 9.8 (8.4-10.2) mg/dL Total Bilirubin 1.2 (0.2-1.3) mg/dL AST 24 (14-36) U/L ALT 18 (4-34) U/L Alkaline Phosphatase 73 (38-126) U/L Troponin I <0.012 (0.000-0.034) ng/mL Total Protein 7.6 (6.3-8.2) g/dL Albumin 4.5 (3.5-5.0) g/dL Amylase 43 (30-110) U/L Lipase 79 (23-300) U/L Urine Color Urine Appearance (Clear) Urine pH (5.0-8.0) Ur Specific [place] (1.001-1.035) Urine Protein (Negative) Urine Glucose (UA) (Negative) Urine Ketones (Negative) Urine Blood (Negative) Urine Nitrite (Negative) Urine Bilirubin (Negative) Urine Urobilinogen (<2.0) mg/dL Ur Leukocyte Esterase (Negative) Urine RBC (0-5) /hpf Urine WBC (0-5) /hpf Urine WBC Clumps (None) /hpf Ur Squamous Epith Cells (0-4) /hpf Urine Bacteria (None) /hpf Hyaline Casts (0-2) /lpf Urine Mucus (None) /hpf Influenza Type A (PCR) (Not Detectd) Influenza Type B (PCR) (Not Detectd) RSV (PCR) (Not Detectd) SARS-CoV-2 (PCR) (Not Detectd) 08/17/24 Range/Units 23:49 WBC (3.8-10.6) k/uL RBC (3.80-5.40) m/uL Hgb (11.4-16.0) gm/dL Hct (34.0-46.0) % MCV (80.0-100.0) fL MCH (25.0-35.0) pg MCHC (31.0-37.0) g/dL RDW (11.5-15.5) % Plt Count (150-450) k/uL MPV Neutrophils % % Lymphocytes % % Monocytes % % Eosinophils % % Basophils % % Neutrophils # (1.3-7.7) k/uL Lymphocytes # (1.0-4.8) k/uL Monocytes # (0-1.0) k/uL Eosinophils # (0-0.7) k/uL Basophils # (0-0.2) k/uL Manual Slide Review PT 11.4 (10.0-12.5) sec INR 1.0 (<1.2) APTT 26.8 (22.0-30.0) sec Sodium (137-145) mmol/L Potassium (3.5-5.1) mmol/L Chloride (98-107) mmol/L Carbon Dioxide (22-30) mmol/L Anion Gap mmol/L BUN (7-17) mg/dL Creatinine (0.52-1.04) mg/dL Est GFR (CKD-EPI)AfAm (>60 ml/min/1.73 sqM) Est GFR (CKD-EPI)NonAf (>60 ml/min/1.73 sqM) Glucose (74-99) mg/dL Plasma Lactic Acid Juan Manuel (0.7-2.0) mmol/L Calcium (8.4-10.2) mg/dL Total Bilirubin (0.2-1.3) mg/dL AST (14-36) U/L ALT (4-34) U/L Alkaline Phosphatase (38-126) U/L Troponin I (0.000-0.034) ng/mL Total Protein (6.3-8.2) g/dL Albumin (3.5-5.0) g/dL Amylase (30-110) U/L Lipase (23-300) U/L Urine Color Urine Appearance (Clear) Urine pH (5.0-8.0) Ur Specific [place] (1.001-1.035) Urine Protein (Negative) Urine Glucose (UA) (Negative) Urine Ketones (Negative) Urine Blood (Negative) Urine Nitrite (Negative) Urine Bilirubin (Negative) Urine Urobilinogen (<2.0) mg/dL Ur Leukocyte Esterase (Negative) Urine RBC (0-5) /hpf Urine WBC (0-5) /hpf Urine WBC Clumps (None) /hpf Ur Squamous Epith Cells (0-4) /hpf Urine Bacteria (None) /hpf Hyaline Casts (0-2) /lpf Urine Mucus (None) /hpf Influenza Type A (PCR) (Not Detectd) Influenza Type B (PCR) (Not Detectd) RSV (PCR) (Not Detectd) SARS-CoV-2 (PCR) (Not Detectd) Disposition Clinical Impression: UTI (urinary tract infection), Nephrolithiasis, Pyelonephritis Disposition: ADMITTED IP TO THIS [facility] Condition: Stable Is patient prescribed a controlled substance at d/c from ED?: No Decision to Admit Reason: Admit from EC Decision Date: 08/18/24 Decision Time: 02:34
[2024-08-17 22:36] LABS: Basophils % (A) 0 %; Eosinophils # (A) 0.2 k/uL (0-0.7); Eosinophils % (A) 1 %; HCT 47.1 % (34.0-46.0); HGB 15.4 gm/dL (11.4-16.0); Lymphocytes # (A) 0.9 k/uL (1.0-4.8); Lymphocytes % (A) 5 %; MCH 29.2 pg (25.0-35.0); MCHC 32.7 g/dL (31.0-37.0); MCV 89.2 fL (80.0-100.0); Mean Platelet Volume 9.7; Monocytes # (A) 0.9 k/uL (0-1.0); Monocytes % (A) 6 %; Neutrophils % (A) 86 %; RBC 5.27 m/uL (3.80-5.40); RDW 13.4 % (11.5-15.5); WBC 16.3 k/uL (3.8-10.6)
[2024-08-17 22:48] LABS: ALT 18 U/L (4-34); AST 24 U/L (14-36); African American GFR (CKD) >90 (>60 ml/min/1.73 sqM); Albumin 4.5 g/dL (3.5-5.0); Alkaline Phosphatase 73 U/L (38-126); Amylase 43 U/L (30-110); Anion Gap 10 mmol/L; Blood Urea Nitrogen 18 mg/dL (7-17); Calcium 9.8 mg/dL (8.4-10.2); Carbon Dioxide 24 mmol/L (22-30); Chloride 101 mmol/L (98-107); Glucose 123 mg/dL (74-99); Lipase 79 U/L (23-300); Non-African American GFR(CKD) 82 (>60 ml/min/1.73 sqM); Potassium 3.2 mmol/L (3.5-5.1); Sodium 135 mmol/L (137-145); Total Bilirubin 1.2 mg/dL (0.2-1.3); Total Protein 7.6 g/dL (6.3-8.2)
[2024-08-17] MEDS: ACETAMINOPHEN TAB 500 MG TAB PO STA (22:51)
[2024-08-17 22:52] LABS: Appearance,Urine Turbid (Clear); Bacteria,Urine Many /hpf; Bilirubin,Urine Negative (Negative); Blood,Urine Large (Negative); Color,Urine Light Red; Glucose,Urine (UA) Negative (Negative); Hyaline Casts,Urine 7 /lpf (0-2); Ketones,Urine 1+ (Negative); Leukocyte Esterase,Urine Large (Negative); Mucus,Urine Many /hpf; Nitrite,Urine Positive (Negative); Protein,Urine 3+ (Negative); RBC,Urine >182 /hpf (0-5); Specific Gravity,Urine 1.016 (1.001-1.035); Squamous Epithelial Cell,Urine 28 /hpf (0-4); Urobilinogen,Urine <2.0 mg/dL (<2.0); WBC,Urine >182 /hpf (0-5)
[2024-08-17] MEDS: HYDROmorphone 0.5 MG/0.5 ML SYRINGE IVP STA (22:52)
[2024-08-17] MEDS: SODIUM CHLORIDE 0.9% 1,000 ML IV STA (22:52)
[2024-08-17] MEDS: ONDANSETRON 4 MG/2 ML VIAL IVP STA (22:53)
[2024-08-17] MEDS: POTASSIUM CHLORIDE ER 20 MEQ TAB.ER PO STA (23:25)
[2024-08-18 00:03] LABS: Platelet Count 77 k/uL (150-450)
[2024-08-18 00:12] LABS: Partial Thromboplastin Time 26.8 sec (22.0-30.0); Prothrombin Time 11.4 sec (10.0-12.5)
[2024-08-18] MEDS: cefTRIAXone IN SWFI 1,000 MG/10 ML SYRINGE IVP STA (01:01)
[2024-08-18] MEDS ORDERED: KETOROLAC 15 MG/ML 1 ML VIAL IVP PRN (02:28)
[2024-08-18] MEDS ORDERED: NALOXONE 0.4 MG/ML 1 ML VIAL IV PRN (02:28)
[2024-08-18] MEDS ORDERED: IBUPROFEN 400 MG TAB PO PRN (02:28)
[2024-08-18] MEDS ORDERED: ACETAMINOPHEN TAB 325 MG TAB PO PRN (02:28)
--- NOTE | 2024-08-18 02:42 | CT ---
EXAM: CT Abdomen and Pelvis Without Intravenous Contrast CLINICAL HISTORY: ITS.REASON CT Reason: hematuria, UTI, hx septic stone TECHNIQUE: Axial computed tomography images of the abdomen and pelvis without intravenous contrast. CTDI is 16.1 mGy and DLP is 957.8 mGy-cm. This CT exam was performed using one or more of the following dose reduction techniques: automated exposure control, adjustment of the mA and/or kV according to patient size, and/or use of iterative reconstruction technique. COMPARISON: No previous studies. FINDINGS: Lung bases: Minimal scarring and subsegmental atelectasis near the lung bases. Heart: Heart is top normal in size. Mediastinum: Small hiatal hernia and possible distal esophagitis. ABDOMEN: Liver: Hepatic hypodensities are are noted the largest of which have Hounsfield measurements compatible with simple cysts. Spleen is normal in contour. Gallbladder and bile ducts: See below. Pancreas: See below. Spleen: See above. Adrenals: The adrenal glands, the head, body, tail of the pancreas and the gallbladder are unremarkable. Kidneys and ureters: Nonobstructing left renal calculi are noted the largest of which measures approximate 1.1 cm at the left renal pelvis causing hydronephrosis. Several nonobstructing right renal calculi are noted the largest of which measures approximately 0.4 cm in the upper pole region of the right kidney. Nonspecific stranding about the left perinephric space. Stranding about the left perinephric space is noted. The left ureter is otherwise unremarkable. No right renal calculus or hydronephrosis. Stomach and bowel: Consider duodenitis. Moderate quantity of ingested material in the stomach. Diverticulosis without diverticulitis. No bowel obstruction. PELVIS: Appendix: Appendix is seen on coronal image 36 and is unremarkable. Bladder: The bladder is underdistended. No stones. Reproductive: The uterus is unremarkable. ABDOMEN and PELVIS: Intraperitoneal space: Unremarkable. No free air. No significant fluid collection. Bones/joints: No acute fracture. No dislocation. No spondylolysis. Soft tissues: Unremarkable. Vasculature: Atherosclerotic disease of the abdominal aorta without change in caliber. No abdominal aortic aneurysm. Lymph nodes: Subcentimeter retroperitoneal lymph nodes. IMPRESSION: 1. The dominant finding on the current study is a 1.1 cm obstructing calculus of the left renal pelvis causing left hydronephrosis. 2. Stranding about the left perinephric space. 3. Numerous bilateral nonobstructing renal calculi are also noted.
[2024-08-18] MEDS: SODIUM CHLORIDE 0.9% 1,000 ML IV SCH (03:18)
[2024-08-18] MEDS: ONDANSETRON 4 MG/2 ML VIAL IVP PRN (05:22)
[2024-08-18] MEDS: KETOROLAC 15 MG/ML 1 ML VIAL IVP PRN (05:28)
[2024-08-18] MEDS: PANTOPRAZOLE 40 MG/10 ML VIAL IV SCH ×2 (09:04→21:33)
--- NOTE | 2024-08-18 10:40 | P.GSCN ---
History of Present Illness Consult date: 08/18/24 Reason for Consult: Left renal stone, UTI History of present illness: This is a 54-year-old female well-known patient to Dr. Amin with history of recurrent kidney stones. Presented to the hospital with a UTI and a left-sided renal stone. She indicated she has been having urinary frequency with dysuria. Also has been having low-grade fevers with chills. Denies any flank pain or gross hematuria. In the ER she underwent a CT that showed evidence of a 1.1 cm left-sided renal pelvis with mild hydro, no evidence of any ureteral stones. There was also multiple nonobstructive bilateral stones. Of note she recently underwent right-sided ureteroscopy and holmium laser earlier this year. She is currently hemodynamically stable and indicated symptoms have improved since admission. Review of Systems - Constitutional Reports chills, Reports fever, Reports weakness, Denies weight loss - Respiratory Denies cough, Denies 7 - Gastrointestinal Denies abdominal pain, Denies nausea, Denies vomiting - Genitourinary Genitourinary: Reports dysuria, Denies flank pain - Neurological Denies headaches, Denies syncope Past Medical History Past Medical History: Hyperlipidemia, Hypertension Additional Past Medical History / Comment(s): kidney stones, hx migraines History of Any Multi-Drug Resistant Organisms: None Reported Past Surgical History: No Surgical Hx Reported Additional Past Surgical History / Comment(s): lumpectomy from back, ureter stent Past Anesthesia/Blood Transfusion Reactions: No Reported Reaction Past Psychological History: Depression Smoking Status: Never smoker Past Alcohol Use History: Occasional Additional Past Alcohol Use History / Comment(s): smokes 1/2 ppd Past Drug Use History: Marijuana - Past Family History Father Family Medical History: Diabetes Mellitus, Myocardial Infarction ([place]) Additional Family Medical History / Comment(s): Father at 56 of [place]. Mother Family Medical History: CVA/TIA, Diabetes Mellitus Medications and Allergies Home Medications Medication Instructions Recorded Confirmed Type Metoprolol Succinate [Toprol Xl] 50 mg PO HS 10/15/18 08/18/24 History Omeprazole 40 mg PO HS 10/15/18 08/18/24 History Citalopram Hydrobromide 40 mg PO HS 06/11/24 08/18/24 History [Citalopram HBr] Ferrous Sulfate [Iron] 325 mg PO HS 06/11/24 08/18/24 History Rosuvastatin Calcium 40 mg PO HS 06/11/24 08/18/24 History lisinopriL 40 mg PO HS 06/11/24 08/18/24 History Ondansetron Odt [Zofran Odt] 4 mg PO Q8HR PRN 06/22/24 08/18/24 History ALPRAZolam [Xanax] 0.5 mg PO DAILY PRN 08/18/24 08/18/24 History Ibuprofen [Motrin] 800 mg PO Q8H PRN 08/18/24 08/18/24 History Allergies Allergy/AdvReac Type Severity Reaction Status Date / Time No Known Allergies Allergy Verified 08/18/24 08:31 Surgical - Exam Vital Signs Temp Pulse Resp BP Pulse Ox 100.9 F H 117 H 20 127/80 98 08/17/24 21:45 08/17/24 21:45 08/17/24 21:45 08/17/24 21:45 08/17/24 21:45 - General no distress, no pain - Eyes normal ocular movement, no pale - ENT normal nares, normal mucosa - Respiratory normal expansion, normal respiratory effort - Abdomen Abdomen: soft, non tender, no distended - Psychiatric oriented to time, oriented to person, oriented to place Results - Labs 08/17/24 22:25 08/17/24 22:25 Abnormal Lab Results - Last 24 Hours (Table) 08/17/24 08/17/24 08/17/24 Range/Units 21:55 22:25 22:25 WBC 16.3 H (3.8-10.6) k/uL Hct 47.1 H (34.0-46.0) % Plt Count 77 L (150-450) k/uL Neutrophils # 14.0 H (1.3-7.7) k/uL Lymphocytes # 0.9 L (1.0-4.8) k/uL Sodium 135 L (137-145) mmol/L Potassium 3.2 L (3.5-5.1) mmol/L BUN 18 H (7-17) mg/dL Glucose 123 H (74-99) mg/dL Urine Appearance Turbid H (Clear) Urine Protein 3+ H (Negative) Urine Ketones 1+ H (Negative) Urine Blood Large H (Negative) Urine Nitrite Positive H (Negative) Ur Leukocyte Esterase Large H (Negative) Urine RBC >182 H (0-5) /hpf Urine WBC >182 H (0-5) /hpf Urine WBC Clumps Few H (None) /hpf Ur Squamous Epith Cells 28 H (0-4) /hpf Urine Bacteria Many H (None) /hpf Hyaline Casts 7 H (0-2) /lpf Urine Mucus Many H (None) /hpf Diabetes panel 08/17/24 Range/Units 22:25 Sodium 135 L (137-145) mmol/L Potassium 3.2 L (3.5-5.1) mmol/L Chloride 101 (98-107) mmol/L Carbon Dioxide 24 (22-30) mmol/L BUN 18 H (7-17) mg/dL Creatinine 0.81 (0.52-1.04) mg/dL Glucose 123 H (74-99) mg/dL Calcium 9.8 (8.4-10.2) mg/dL AST 24 (14-36) U/L ALT 18 (4-34) U/L Alkaline Phosphatase 73 (38-126) U/L Total Protein 7.6 (6.3-8.2) g/dL Albumin 4.5 (3.5-5.0) g/dL Calcium panel 08/17/24 Range/Units 22:25 Calcium 9.8 (8.4-10.2) mg/dL Albumin 4.5 (3.5-5.0) g/dL Pituitary panel 08/17/24 Range/Units 22:25 Sodium 135 L (137-145) mmol/L Potassium 3.2 L (3.5-5.1) mmol/L Chloride 101 (98-107) mmol/L Carbon Dioxide 24 (22-30) mmol/L BUN 18 H (7-17) mg/dL Creatinine 0.81 (0.52-1.04) mg/dL Glucose 123 H (74-99) mg/dL Calcium 9.8 (8.4-10.2) mg/dL Adrenal panel 08/17/24 Range/Units 22:25 Sodium 135 L (137-145) mmol/L Potassium 3.2 L (3.5-5.1) mmol/L Chloride 101 (98-107) mmol/L Carbon Dioxide 24 (22-30) mmol/L BUN 18 H (7-17) mg/dL Creatinine 0.81 (0.52-1.04) mg/dL Glucose 123 H (74-99) mg/dL Calcium 9.8 (8.4-10.2) mg/dL Total Bilirubin 1.2 (0.2-1.3) mg/dL AST 24 (14-36) U/L ALT 18 (4-34) U/L Alkaline Phosphatase 73 (38-126) U/L Total Protein 7.6 (6.3-8.2) g/dL Albumin 4.5 (3.5-5.0) g/dL - Imaging CT scan - abdomen: image reviewed (1.1 cm stone in the left renal pelvis with mild hydro) Assessment and Plan Assessment: 54-year-old female admitted to the hospital with a UTI, extensive kidney stone history previous history of ureteroscopy with laser. At this time she is asymptomatic from her stone, but discussed given the location of the stone in the renal pelvis if she will eventually require holmium laser lithotripsy to address the stone. Discussed with her at this point recommend continuing IV antibiotics and we will reassess her in 24 hours, if he starts spiking fevers or clinical status changes then she will require stent, but if she continues to improve then we will hold off on the stent and continue with antibiotics with plan to arrange for outpatient ureteroscopy and holmium laser
[2024-08-18] MEDS ORDERED: ALPRAZolam 0.5 MG TAB PO PRN (11:37)
--- NOTE | 2024-08-18 11:41 | P.HPIM ---
History of Present Illness Patient presents 54-year-old female came in with complaints of nausea vomiting headache headaches patient does have history of migraine. Uses Motrin for migraine at home. Patient is also complaining of urinary urgency and frequency. Patient had UTIs in the past and renal stone secondary to urinary tract infection in the past. Patient's urine is significantly abnormal. Patient also has a 1.1 cm obstructing calculi in the left renal pelvis causing left hydronephrosis and patient was evaluated by urology and urology is recommending antibiotics. There were numerous bilateral nonobstructing renal calculi was noted as well. Patient does have leukocytosis without any fever. Patient is having migraine headaches at this time. REVIEW OF SYSTEMS: All other systems are negative except those mentioned in the HPI PHYSICAL EXAMINATION: GENERAL: The patient is alert and oriented x3, not in any acute distress. Well developed, well nourished. HEENT: Pupils are round and equally reacting to light. EOMI. No scleral icterus. No conjunctival pallor. Normocephalic, atraumatic. No pharyngeal erythema. No thyromegaly. CARDIOVASCULAR: S1 and S2 present. No murmurs, rubs, or gallops. PULMONARY: Chest is clear to auscultation, no wheezing or crackles. ABDOMEN: Soft, nontender, nondistended, normoactive bowel sounds. No palpable organomegaly. MUSCULOSKELETAL: No joint swelling or deformity. EXTREMITIES: No cyanosis, clubbing, or pedal edema. NEUROLOGICAL: Gross neurological examination did not reveal any focal deficits. SKIN: No rashes. Assessment and plan -UTI complicated: Patient does have renal stones patient will be continued on Rocephin awaiting urine cultures. No lithotripsy is being planned at this time neurology evaluated the patient -Migraine headaches: Will order Compazine along with Benadryl, Toradol with Protonix. -Hypertension patient will be resumed on a lower dose of lisinopril resumed on metoprolol -Hyperlipidemia: Resumed on statin. -Depression patient was resumed on citalopram and as needed Ativan -Hypokalemia secondary to IV fluids will be replaced DVT prophylaxis: Early ambulation Past Medical History Past Medical History: Hyperlipidemia, Hypertension Additional Past Medical History / Comment(s): kidney stones, hx migraines History of Any Multi-Drug Resistant Organisms: None Reported Past Surgical History: No Surgical Hx Reported Additional Past Surgical History / Comment(s): lumpectomy from back, ureter sten t Past Anesthesia/Blood Transfusion Reactions: No Reported Reaction Past Psychological History: Depression Smoking Status: Never smoker Past Alcohol Use History: Occasional Additional Past Alcohol Use History / Comment(s): smokes 1/2 ppd Past Drug Use History: Marijuana - Past Family History Father Family Medical History: Diabetes Mellitus, Myocardial Infarction ([place]) Additional Family Medical History / Comment(s): Father at 56 of [place]. Mother Family Medical History: CVA/TIA, Diabetes Mellitus Medications and Allergies Home Medications Medication Instructions Recorded Confirmed Type Metoprolol Succinate [Toprol Xl] 50 mg PO HS 10/15/18 08/18/24 History Omeprazole 40 mg PO HS 10/15/18 08/18/24 History Citalopram Hydrobromide 40 mg PO HS 06/11/24 08/18/24 History [Citalopram HBr] Ferrous Sulfate [Iron] 325 mg PO HS 06/11/24 08/18/24 History Rosuvastatin Calcium 40 mg PO HS 06/11/24 08/18/24 History lisinopriL 40 mg PO HS 06/11/24 08/18/24 History Ondansetron Odt [Zofran Odt] 4 mg PO Q8HR PRN 06/22/24 08/18/24 History ALPRAZolam [Xanax] 0.5 mg PO DAILY PRN 08/18/24 08/18/24 History Ibuprofen [Motrin] 800 mg PO Q8H PRN 08/18/24 08/18/24 History Allergies Allergy/AdvReac Type Severity Reaction Status Date / Time No Known Allergies Allergy Verified 08/18/24 08:31 Physical Exam Vitals: Vital Signs Temp Pulse Pulse Resp BP BP Pulse Ox 08/18/24 09:43 97.9 F 63 16 143/86 99 08/18/24 05:51 98.2 F 65 18 134/88 95 08/18/24 01:06 18 115/81 08/17/24 23:27 99.1 F 08/17/24 21:45 100.9 F H 117 H 20 127/80 98 Intake and Output 08/17/24 08/18/24 08/18/24 22:59 06:59 14:59 Other: Weight 102.965 kg 102.965 kg Results CBC & Chem 7: 08/17/24 22:25 08/17/24 22:25 Labs: Abnormal Lab Results - Last 24 Hours (Table) 08/17/24 08/17/24 08/17/24 Range/Units 21:55 22:25 22:25 WBC 16.3 H (3.8-10.6) k/uL Hct 47.1 H (34.0-46.0) % Plt Count 77 L (150-450) k/uL Neutrophils # 14.0 H (1.3-7.7) k/uL Lymphocytes # 0.9 L (1.0-4.8) k/uL Sodium 135 L (137-145) mmol/L Potassium 3.2 L (3.5-5.1) mmol/L BUN 18 H (7-17) mg/dL Glucose 123 H (74-99) mg/dL Urine Appearance Turbid H (Clear) Urine Protein 3+ H (Negative) Urine Ketones 1+ H (Negative) Urine Blood Large H (Negative) Urine Nitrite Positive H (Negative) Ur Leukocyte Esterase Large H (Negative) Urine RBC >182 H (0-5) /hpf Urine WBC >182 H (0-5) /hpf Urine WBC Clumps Few H (None) /hpf Ur Squamous Epith Cells 28 H (0-4) /hpf Urine Bacteria Many H (None) /hpf Hyaline Casts 7 H (0-2) /lpf Urine Mucus Many H (None) /hpf
[2024-08-18] MEDS: diphenhydrAMINE 50 MG/ML 1 ML VIAL IVP PRN (14:01)
[2024-08-18] MEDS: POTASSIUM CHLORIDE ER 20 MEQ TAB.ER PO STA (14:02)
[2024-08-18] MEDS: PROCHLORPERAZINE INJ 10 MG/2 ML VIAL IVP PRN (14:02)
[2024-08-18] MEDS: METOPROLOL SUCCINATE (ER) 50 MG TAB.ER.24H PO SCH (21:32)
[2024-08-18] MEDS: lisinopriL 20 MG TAB PO SCH (21:33)
[2024-08-18] MEDS: ATORVASTATIN 80 MG TAB PO SCH (21:33)
[2024-08-18] MEDS: CITALOPRAM HYDROBROMIDE 20 MG TAB PO SCH (21:33)
[2024-08-19 09:07] LABS: ALT 18 U/L (8-44); AST 21 U/L (13-35); Albumin 3.6 g/dL (3.8-4.9); Albumin/Globulin Ratio 1.24 Ratio (1.60-3.17); Alkaline Phosphatase 72 U/L (41-126); BUN/Creat Ratio 22.62 Ratio (12.00-20.00); Blood Urea Nitrogen 18.1 mg/dL (9.0-27.0); Calcium 8.6 mg/dL (8.7-10.3); Carbon Dioxide 27.4 mmol/L (21.6-31.8); Chloride 101 mmol/L (96-109); Globulin 2.9 g/dL (1.6-3.3); Glucose 123 mg/dL (70-110); Potassium 3.8 mmol/L (3.5-5.5); Sodium 140 mmol/L (135-145); Total Bilirubin 0.4 mg/dL (0.3-1.2); Total Protein 6.5 g/dL (6.2-8.2)
[2024-08-19 09:11] LABS: Basophils # (A) 0.05 X 10*3/uL (0.00-0.10); Basophils % (A) 0.6 %; Eosinophils % (A) 5.8 %; HCT 44.4 % (37.2-46.3); HGB 14.3 g/dL (12.0-15.0); Immature Platelet Fraction 12.3 % (1.1-6.1); Lymphocytes # (A) 1.32 X 10*3/uL (0.90-5.00); Lymphocytes % (A) 15.4 %; MCH 28.9 pg (27.0-32.0); MCHC 32.2 g/dL (32.0-37.0); MCV 89.7 FL (80.0-97.0); Mean Platelet Volume 13.1 FL (9.5-12.2); Monocytes # (A) 0.99 X 10*3/uL (0.20-1.00); Monocytes % (A) 11.5 %; NRBC Per 100 WBC 0 X 10*3/uL (0.00-0.01); Neutrophils % (A) 66.4 %; Platelet Count 72 X 10*3/uL (140-440); RBC 4.95 X 10*6/uL (4.10-5.20); RDW 13.3 % (11.5-14.5); WBC 8.59 X 10*3/uL (4.50-10.00)
[2024-08-19] MEDS ORDERED: LACTULOSE 20 GM/30 ML CUP PO SCH (11:30)
--- NOTE | 2024-08-19 13:12 | P.PN ---
Subjective Progress Note Date: 08/19/24 Patient presents 54-year-old female came in with complaints of nausea vomiting headache headaches patient does have history of migraine. Uses Motrin for migraine at home. Patient is also complaining of urinary urgency and frequency. Patient had UTIs in the past and renal stone secondary to urinary tract infection in the past. Patient's urine is significantly abnormal. Patient also has a 1.1 cm obstructing calculi in the left renal pelvis causing left hydronephrosis and patient was evaluated by urology and urology is recommending antibiotics. There were numerous bilateral nonobstructing renal calculi was noted as well. Patient does have leukocytosis without any fever. Patient is mirza ving migraine headaches at this time. 08/19/24 - Patient seen at bedside today. Per urology's recommendation considering the patient is asymptomatic from her stone, however the location of the stone in the renal pelvis she will eventually require holmium laser will likely trip see to address the stone. The recommendation is continued IV antibiotics and a reassessment in 24 hours, if she starts spiking fevers or there is status changes clinically then she will require stent, however if she continues to improve then they will hold off on stent placement and continue with antibiotics and plan to arrange for outpatient ureteroscopy and holmium laser. Vital signs showed blood pressure 120/82, heart rate of 60, respiratory rate 17, while saturating 97% on room air New labs -WBCs 8.59, Hgb 14.3, Hct 44.4, PLT 72, immature platelet fraction elevated at 12.3; sodium 140, potassium 3.8, BUN 18.1, creatinine 0.8 Urine culture showed greater than 100,000 CFU/mL gram-negative bacilli REVIEW OF SYSTEMS: CONSTITUTIONAL: No fever, no malaise. CARDIOVASCULAR: No chest pain, no palpitations, no syncope. PULMONARY: No shortness of breath, no cough. GASTROINTESTINAL: No diarrhea, no nausea, no vomiting, no abdominal pain. NEUROLOGICAL: No headaches, no weakness. PHYSICAL EXAMINATION: GENERAL: The patient is alert and oriented x3, not in any acute distress. Well developed, well nourished. HEENT: Pupils are round and equally reacting to light. EOMI. No scleral icterus. No conjunctival pallor. Normocephalic, atraumatic. No pharyngeal erythema. No thyromegaly. CARDIOVASCULAR: S1 and S2 present. No murmurs, rubs, or gallops. PULMONARY: Chest is clear to auscultation, no wheezing or crackles. ABDOMEN: Soft, nontender, nondistended, normoactive bowel sounds. No palpable organomegaly. MUSCULOSKELETAL: No joint swelling or deformity. EXTREMITIES: No cyanosis, clubbing, or pedal edema. NEUROLOGICAL: Gross neurological examination did not reveal any focal deficits. SKIN: No rashes. Assessment and plan #Complicated urinary tract infection Patient is renal stone but will be continued on Rocephin while awaiting ur inary cultures No lithotripsy is being planned at this time, urology evaluated the patient and recommended antibiotics Urine culture showed growth of gram-negative bacilli Continue on IV Rocephin per urology's recommendation, if changes clinically or spiking fevers then consider placement of stent, however patient remains clinically stable then will continue IV antibiotics and schedule outpatient ureteroscopy and holmium laser at a later date #Migraine headaches Compazine ordered, 5 mg 3 times daily as needed, along with Benadryl, 25 mg IV 3 times daily as needed, Toradol, 50 mg IV every 6 hours as needed, and Protonix #Hypertension Patient will be started on lower dose of lisinopril and resumed on her metoprolol 20 mg lisinopril and 50 mg of metoprolol succinate #Hyperlipidemia 80 mg nightly Lipitor #Depression 40 mg Celexa nightly #Hypokalemia secondary to IV fluids - resolved On arrival potassium 3.2 Patient given 40 mill equivalents potassium chloride Labs on 08/19 showed potassium 3.8 #Moderate thrombocytopenia On arrival patient's platelets were 77, most recent today (08/19) platelet 72 Immature platelet fraction showed to be elevated at 12.3 Dictation was produced using [employer] dictation software. please excuse any grammatical, word or spelling errors. Dr. Geoffrey MD I have performed a history and physical examination and medical decision making of this patient, discussed the same with the the resident, and agree with the assessment and plan as written. I performed brief physical exam. Objective - Vital Signs Vital signs: Vital Signs Temp 97.5 F L 08/19/24 07:00 Pulse 60 08/19/24 07:00 Resp 17 08/19/24 07:00 BP 120/82 08/19/24 07:00 Pulse Ox 97 08/19/24 07:00 FiO2 Intake & Output 08/18/24 08/19/24 08/19/24 18:59 06:59 18:59 Other: Voiding Method Toilet Toilet # Voids 1 1 - Labs CBC & Chem 7: 08/20/24 04:38 08/20/24 04:38
--- NOTE | 2024-08-19 13:16 | P.PN ---
Subjective Progress Note Date: 08/19/24 No acute overnight event, denies any fevers or chills. Not having any flank pain. Urine cultures growing gram-negative bacilli Objective - Vital Signs Vital signs: Vital Signs Temp 97.5 F L 08/19/24 07:00 Pulse 60 08/19/24 07:00 Resp 17 08/19/24 07:00 BP 120/82 08/19/24 07:00 Pulse Ox 97 08/19/24 07:00 FiO2 Intake & Output 08/18/24 08/19/24 08/19/24 18:59 06:59 18:59 Intake Total 118 Balance 118 Intake: Oral 118 Other: Voiding Method Toilet Toilet Toilet # Voids 1 1 - Constitutional General appearance: Present: no acute distress - Gastrointestinal General gastrointestinal: Present: soft. Absent: distended, tenderness - Psychiatric Psychiatric: Present: A&O x's 3 - Labs CBC & Chem 7: 08/19/24 05:23 08/19/24 05:23 Labs: Abnormal Lab Results - Last 24 Hours (Table) 08/19/24 08/19/24 Range/Units 05:23 05:23 Plt Count 72 L (140-440) X 10*3/uL MPV 13.1 H (9.5-12.2) FL Eosinophils # 0.50 H (0.04-0.35) X 10*3/uL Immature Plt Fraction 12.3 H (1.1-6.1) % BUN/Creatinine Ratio 22.62 H (12.00-20.00) Ratio Glucose 123 H (70-110) mg/dL Calcium 8.6 L (8.7-10.3) mg/dL Albumin 3.6 L (3.8-4.9) g/dL Albumin/Globulin Ratio 1.24 L (1.60-3.17) Ratio Microbiology - Last 24 Hours (Table) 08/17/24 21:55 Urine Culture - Preliminary Urine,Clean Catch Gram Neg Bacilli Assessment and Plan Assessment: 54-year-old female admitted to the hospital with a UTI, extensive kidney stone history previous history of ureteroscopy with laser. At this time she is asymptomatic from her stone, but discussed given the location of the stone in th e renal pelvis if she will eventually require holmium laser lithotripsy to address the stone. Urine culture is growing gram-negative bacilli. From noted standpoint recommend discharging once urine culture is finalized. I did advise her to follow-up as an outpatient with Dr. Solis to arrange for right-sided ureteroscopy with holmium laser
[2024-08-20 07:22] VITALS: BP 152/82; PULSE 62; RESP 17; TEMP 98.5
[2024-08-20 08:49] LABS: BUN/Creat Ratio 17.62 Ratio (12.00-20.00); Blood Urea Nitrogen 14.1 mg/dL (9.0-27.0); Carbon Dioxide 30.1 mmol/L (21.6-31.8); Chloride 102 mmol/L (96-109); Glucose 115 mg/dL (70-110); Potassium 3.7 mmol/L (3.5-5.5); Sodium 142 mmol/L (135-145)
[2024-08-20 08:58] LABS: Basophils # (A) 0.05 X 10*3/uL (0.00-0.10); Basophils % (A) 0.6 %; Eosinophils # (A) 0.41 X 10*3/uL (0.04-0.35); HCT 41.9 % (37.2-46.3); HGB 13.5 g/dL (12.0-15.0); Lymphocytes # (A) 1.68 X 10*3/uL (0.90-5.00); Lymphocytes % (A) 20.7 %; MCH 28.7 pg (27.0-32.0); MCHC 32.2 g/dL (32.0-37.0); MCV 89.1 FL (80.0-97.0); Mean Platelet Volume 12.5 FL (9.5-12.2); Monocytes # (A) 0.88 X 10*3/uL (0.20-1.00); Monocytes % (A) 10.8 %; NRBC Per 100 WBC 0 X 10*3/uL (0.00-0.01); Neutrophils # (A) 5.08 X 10*3/uL (1.80-7.70); Neutrophils % (A) 62.5 %; Platelet Count 111 X 10*3/uL (140-440); RDW 13.1 % (11.5-14.5); WBC 8.13 X 10*3/uL (4.50-10.00)
--- NOTE | 2024-08-20 11:48 | P.DS ---
Providers Date of admission: 08/19/24 12:03 Attending physician: Franklyn Syed MD Consults: 08/18/24 02:28 Consult Physician Routine Consulting Provider: Mars Castañeda Consult Reason/Comments: nephrolithiasis, UTI Do you want consulting provider notified?: Yes, Notify in am Primary care physician: Neel Girard DO Hospital Course: Discharge diagnoses; #Complicated urinary tract infection #Migraine headaches #Hypertension #Hyperlipidemia #Depression #Hypokalemia secondary to IV fluids - resolved #Moderate thrombocytopenia Hospital course; 54-year-old female came in with complaints of nausea vomiting headache headaches patient does have history of migraine. Uses Motrin for migraine at home. Patient is also complaining of urinary urgency and frequency. Patient had UTIs in the past and renal stone secondary to urinary tract infection in the past. Patient's urine is significantly abnormal. Patient also has a 1.1 cm obstructing calculi in the left renal pelvis causing left hydronephrosis and patient was evaluated by urology and urology is recommending antibiotics. There were numerous bilateral nonobstructing renal calculi was noted as well. Patient does have leukocytosis without any fever. Patient is having migraine headaches at this time. 08/19/24 - Patient seen at bedside today. Per urology's recommendation considering the patient is asymptomatic from her stone, however the location of the stone in the renal pelvis she will eventually require holmium laser will likely trip see to address the stone. The recommendation is continued IV antibiotics and a reassessment in 24 hours, if she starts spiking fevers or there is status changes clinically then she will require stent, however if she continues to improve then they will hold off on stent placement and continue with antibiotics and plan to arrange for outpatient ureteroscopy and holmium laser. Vital signs showed blood pressure 120/82, heart rate of 60, respiratory rate 17, while saturating 97% on room air New labs -WBCs 8.59, Hgb 14.3, Hct 44.4, PLT 72, immature platelet fraction elevated at 12.3; sodium 140, potassium 3.8, BUN 18.1, creatinine 0.8 Urine culture showed greater than 100,000 CFU/mL gram-negative bacilli 08/20/24 - Patient see at bedside today. Patient remains afebrile, with a blood pressure 152/82, heart rate 62, respiratory rate 17, saturating 97% on room air. Per urology's recommendation patient is stable for discharge once urine cultures finalized, additionally advised the patient to follow-up as an outpatient with Dr. Solis to arrange for a right sided ureteroscopy with holmium laser. Patient medically optimized for discharge currently, even while awaiting final cultures of her urine. Patient will be discharged on 7 days of 500 mg of Ceftin twice daily, while pending the final urinary culture results. Upon final cultures being reviewed, any changes to the patient's antibiotic will be made and discussed with the patient over the phone. Discussed this plan with the patient, and this is what she would prefer to do. PHYSICAL EXAMINATION: GENERAL: The patient is alert and oriented x3, not in any acute distress. Well developed, well nourished. HEENT: Pupils are round and equally reacting to light. EOMI. No scleral icterus. No conjunctival pallor. Normocephalic, atraumatic. No pharyngeal erythema. No thyromegaly. CARDIOVASCULAR: S1 and S2 present. No murmurs, rubs, or gallops. PULMONARY: Chest is clear to auscultation, no wheezing or crackles. ABDOMEN: Soft, nontender, nondistended, normoactive bowel sounds. No palpable organomegaly. MUSCULOSKELETAL: No joint swelling or deformity. EXTREMITIES: No cyanosis, clubbing, or pedal edema. NEUROLOGICAL: Gross neurological examination did not reveal any focal deficits. SKIN: No rashes. Dictation was produced using [employer] dictation software. please excuse any grammatical, word or spelling errors. Dr. Geoffrey MD I have performed a history and physical examination and medical decision making of this patient, discussed the same with the the resident, and agree with the assessment and plan as written. I performed brief physical exam. Patient Condition at Discharge: Good Plan - Discharge Summary New Discharge Prescriptions: New cefUROXime axetiL [Ceftin] 500 mg PO BID 7 Days #14 tab Continue Omeprazole 40 mg PO HS Metoprolol Succinate [Toprol Xl] 50 mg PO HS lisinopriL 40 mg PO HS Ferrous Sulfate [Iron] 325 mg PO HS Citalopram Hydrobromide [Citalopram HBr] 40 mg PO HS Ondansetron Odt [Zofran ODT] 4 mg PO Q8HR PRN PRN Reason: Nausea And Vomiting ALPRAZolam [Xanax] 0.5 mg PO DAILY PRN PRN Reason: Anxiety Rosuvastatin Calcium 40 mg PO HS Ibuprofen [Motrin] 800 mg PO Q8H PRN PRN Reason: Pain Or Fever > 100.5 Discharge Medication List Metoprolol Succinate [Toprol Xl] 50 mg PO HS 10/15/18 [History] Omeprazole 40 mg PO HS 10/15/18 [History] Citalopram Hydrobromide [Citalopram HBr] 40 mg PO HS 06/11/24 [History] Ferrous Sulfate [Iron] 325 mg PO HS 06/11/24 [History] Rosuvastatin Calcium 40 mg PO HS 06/11/24 [History] lisinopriL 40 mg PO HS 06/11/24 [History] Ondansetron Odt [Zofran ODT] 4 mg PO Q8HR PRN 06/22/24 [History] ALPRAZolam [Xanax] 0.5 mg PO DAILY PRN 08/18/24 [History] Ibuprofen [Motrin] 800 mg PO Q8H PRN 08/18/24 [History] cefUROXime axetiL [Ceftin] 500 mg PO BID 7 Days #14 tab 08/20/24 [Rx] Follow up Appointment(s)/Referral(s): Brent Solis MD [STAFF PHYSICIAN] - 1 Week Neel Girard DO [Primary Care Provider] - 1-2 days Patient Instructions/Handouts: Urinary Tract Infection in Women (DC) Discharge/Stand Alone Forms: AA Meetings [place], [facility] Substance Abuse Facilities, Outpatient Therapy List Discharge Disposition: HOME SELF-CARE
== END 2024-08-20 12:38 | disposition home or self-care (01) | DRG 690 ==
LOC: EC 21:35 → 6NMEDSUR 08-18 02:23 → OBSVTOIN 08-19 12:03
PROVIDERS: ADMIT Internal Medicine; ATTEND Internal Medicine
DX: N13.6 Pyonephrosis (principal); D69.6 Thrombocytopenia, unspecified; F32.A Depression, unspecified; I10 Essential (primary) hypertension; E78.5 Hyperlipidemia, unspecified; E87.6 Hypokalemia; G43.909 Migraine, unspecified, not intractable, without status migrainosus; N20.0 Calculus of kidney; B96.89 Other specified bacterial agents as the cause of diseases classified elsewhere; Z87.440 Personal history of urinary (tract) infections; Z87.891 Personal history of nicotine dependence; Z87.442 Personal history of urinary calculi
CPT/HCPCS: 36415; 74176; 80048; 80053; 81001; 82150; 83605; 83690; 84484; 85025; 85610; 85730; 87077; 87086; 87186; 87636; 93005; 96361; 96374; 96375; 99285

== ENCOUNTER → 2024-09-26 | Outpatient (CLI) | payer OTHER ==
[2024-09-26 19:24] LABS: Basophils # (A) 0.08 X 10*3/uL (0.00-0.10); Basophils % (A) 0.9 %; Eosinophils # (A) 0.44 X 10*3/uL (0.04-0.35); Eosinophils % (A) 5.2 %; HCT 44.7 % (37.2-46.3); HGB 14.2 g/dL (12.0-15.0); Lymphocytes # (A) 2.48 X 10*3/uL (0.90-5.00); Lymphocytes % (A) 29.4 %; MCH 28.2 pg (27.0-32.0); MCHC 31.8 g/dL (32.0-37.0); MCV 88.9 FL (80.0-97.0); Mean Platelet Volume 11.6 FL (9.5-12.2); Monocytes # (A) 0.66 X 10*3/uL (0.20-1.00); Monocytes % (A) 7.8 %; NRBC Per 100 WBC 0 X 10*3/uL (0.00-0.01); Neutrophils # (A) 4.74 X 10*3/uL (1.80-7.70); Neutrophils % (A) 56.3 %; Platelet Count 190 X 10*3/uL (140-440); RBC 5.03 X 10*6/uL (4.10-5.20); RDW 14.6 % (11.5-14.5); WBC 8.43 X 10*3/uL (4.50-10.00)
[2024-09-26 20:48] LABS: BUN/Creat Ratio 18.62 Ratio (12.00-20.00); Blood Urea Nitrogen 14.9 mg/dL (9.0-27.0); Calcium 9.7 mg/dL (8.7-10.3); Chloride 102 mmol/L (96-109); Glucose 116 mg/dL (70-110); Potassium 3.9 mmol/L (3.5-5.5); Sodium 140 mmol/L (135-145)
== END | disposition home or self-care (01) ==
LOC: LABPAT 16:04
PROVIDERS: ATTEND Urology
DX: Z01.818 Encounter for other preprocedural examination (principal); N20.0 Calculus of kidney
CPT/HCPCS: 80048; 85025; 87086

== ENCOUNTER → 2024-10-03 | Day surgery (SDC) | payer OTHER ==
[2024-09-30 10:49] VITALS: BMI 30.7
--- NOTE | 2024-10-02 07:22 | P.GSHP ---
History of Present Illness H&P Date: 10/02/24 Chief Complaint: Left renal colic Patient is a 54-year-old white female with a history of recurrent calcium oxalate monohydrate urolithiasis. She underwent ureteroscopic removal of a right proximal ureteral calculus and right renal calculi in May 2024. CT scan on July 28, 2028, 2023 revealed left renal calculi, the largest being a 1.1 cm left renal pelvic calculus causing hydronephrosis. She is currently being treated for an E. coli UTI. She now comes for ureteroscopic removal of the calculi. ESWL was discussed as an option. - Constitutional Constitutional: Denies chills, Denies fever - Genitourinary (Female) Genitourinary: Reports flank pain, Reports kidney stones Past Medical History Past Medical History: GERD/Reflux, Hyperlipidemia, Hypertension Additional Past Medical History / Comment(s): kidney stones, hx migraines History of Any Multi-Drug Resistant Organisms: None Reported Past Surgical History: No Surgical Hx Reported Additional Past Surgical History / Comment(s): lmupectomy from back, ureter stent placed and removed , Colonoscopy Past Anesthesia/Blood Transfusion Reactions: No Reported Reaction Additional Past Anesthesia/Blood Transfusion Reaction / Comment(s): No hx of blood transfusion to date. Smoking Status: Former smoker - Past Family History Father Family Medical History: Diabetes Mellitus, Myocardial Infarction ([place]) Additional Family Medical History / Comment(s): Father at 56 of [place]. Mother Family Medical History: CVA/TIA, Diabetes Mellitus Medications and Allergies Home Medications Medication Instructions Recorded Confirmed Type Metoprolol Succinate [Toprol Xl] 50 mg PO HS 10/15/18 09/30/24 History Omeprazole 40 mg PO HS 10/15/18 09/30/24 History Citalopram Hydrobromide 40 mg PO HS 06/11/24 09/30/24 History [Citalopram HBr] Ferrous Sulfate [Iron] 325 mg PO HS 06/11/24 09/30/24 History Rosuvastatin Calcium 40 mg PO HS 06/11/24 09/30/24 History lisinopriL 40 mg PO HS 06/11/24 09/30/24 History ALPRAZolam [Xanax] 0.5 mg PO DAILY PRN 08/18/24 09/30/24 History Ibuprofen [Motrin] 800 mg PO Q8H PRN 08/18/24 09/30/24 History Black Cohosh(Unknown Dose) 1 dose PO QAM 09/30/24 09/30/24 History Magnesium(Unknown Dose) 1 dose PO QAM 09/30/24 09/30/24 History Multivitamin(Unknown Dose) 1 dose PO QAM 09/30/24 09/30/24 History Vit D(Unknown Dose) 1 dose PO QAM 09/30/24 09/30/24 History Vit E(Unknown Dose) 1 dose PO QAM 09/30/24 09/30/24 History Allergies Allergy/AdvReac Type Severity Reaction Status Date / Time No Known Allergies Allergy Verified 09/30/24 10:32 Surgical - Exam - General well developed, well nourished, no distress - Respiratory normal respiratory effort - Psychiatric oriented to time, oriented to person, oriented to place, speech is normal, memory intact Results - Imaging CT scan - abdomen: report reviewed, image reviewed Assessment and Plan (1) Calculus of kidney Status: Acute Code(s): N20.0 - CALCULUS OF KIDNEY SNOMED Code(s): 78108230 Plan: Cystoscopy, left ureteroscopy with Holmium laser lithotripsy and stone basketing, left ureteral stent insertion. The procedure has been reviewed in detail with the patient. She is aware of potential risks, which include anesthesia, bleeding, infection, inability to remove all calculi, and ureteral injury.
[~2024-10-03] MED LIST changes: +GLYCOPYRROLATE 0.2 MG/ML 2 ML VIAL ONE; +HYDROmorphone 0.5 MG/0.5 ML SYRINGE IVP PRN; +LIDOCAINE 1% (10MG/ML) FOR IV START INTRADERMA PRN; +LIDOCAINE 1% INJ 10MG/ML (20 ML MDV) ONE; +MIDAZOLAM 2 MG/2 ML VIAL ONE; +NEOSTIGMINE 1 MG/ML 10 ML VIAL ONE; +PROPOFOL 10 MG/ML 20 ML VIAL IV ONE; +ROCURONIUM 10 MG/ML (5 ML VIAL) IV ONE; -SCOPOLAMINE 1 MG/72 HR PATCH TRANSDERM ONE; +SUGAMMADEX SODIUM 200 MG/2 ML SDV IV ONE; +ePHEDrine 50 MG/ML 1 ML VIAL ONE; +fentaNYL (PF) 50 MCG/ML 2 ML AMP ONE
[2024-10-03] MEDS: IV FLUID CONTINUATION 1,000 ML IV ONE (07:53)
[2024-10-03] MEDS: LACTATED RINGERS 1,000 ML IV SCH (08:14)
[2024-10-03] MEDS: ONDANSETRON 4 MG/2 ML VIAL IVP ONE (08:15)
[2024-10-03] MEDS: DEXAMETHASONE SOD PHOSPHATE 4 MG/ML 1 ML VIAL IV ONE (08:15)
--- NOTE | 2024-10-03 08:44 | XR ---
EXAMINATION TYPE: XR KUB DATE OF EXAM: 10/03/2024 7:40 AM COMPARISON: 06/22/2024 CLINICAL INDICATION: Female, 54 years old with history of Cysto/Litho, TECHNIQUE: XR KUB view(s) obtained. FINDINGS: There is a normal bowel gas pattern. Psoas margins are normal. No organomegaly is present. Left renal stones are present. The largest in the midpole measures 1.4 cm. Multiple additional smalle r calcifications are on the left with a few small calcifications scattered on the right. Benign-appea ring spherical calcifications within the right hemipelvis. Some phleboliths are present on the left IMPRESSION: 1. Bilateral renal stones, the largest on the left is 1.4 cm. [facility], , 10/03/2024 8:42 AM
[2024-10-03] MEDS: LACTATED RINGERS 1,000 ML IV ONE (10:38)
--- NOTE | 2024-10-03 11:02 | FL ---
EXAMINATION TYPE: FL guidance operating room DATE OF EXAM: 10/03/2024 10:50 AM COMPARISON: Pre Operative Images if available both CT/MRI or plain film CLINICAL INDICATION: Female, 54 years old with history of Cysto for left kidney stone; TECHNIQUE: FL guidance operating room, multiple fluoroscopic images provided for procedure. Total fluoroscopy time: 14 seconds Total submitted images to PACS: 2 DAP: 0.2953 mGym2 Gycm2 uGym2 cGycm2 or equivalent. FINDINGS: Fluoroscopic images during injection for pain management demonstrate multilevel degeneration changes throughout the spine. No evidence for fracture. No acute process identified. IMPRESSION: 1. No evidence for intraoperative complication. 2. Please see the operative/procedural note for further details. [facility], , 10/03/2024 11:00 AM
[2024-10-03 11:12] VITALS: TEMP 97
--- NOTE | 2024-10-03 11:22 | P.OP ---
Date of Procedure: 10/03/24 Preoperative Diagnosis: Left renal calculus Postoperative Diagnosis: Same Procedure(s) Performed: Cystoscopy, left ureteroscopy with Holmium laser lithotripsy and stone basketing, left ureteral stent insertion Anesthesia: ITZ Surgeon: Brent Solis Estimated Blood Loss (ml): 5 IV fluids (ml): 1,100 Pathology: none sent Condition: stable Disposition: PACU Indications for Procedure: Patient is a 54-year-old white female with a history of recurrent calcium oxalate monohydrate urolithiasis. She underwent ureteroscopic removal of a right proximal ureteral calculus and right renal calculi in May 2024. CT scan on July 28, 2028, 2023 revealed left renal calculi, the largest being a 1.1 cm left renal pelvic calculus causing hydronephrosis. She is currently being treated for an E. coli UTI. She now comes for ureteroscopic removal of the calculi. ESWL was discussed as an option. Operative Findings: 14 mm left renal pelvic calculus, dusted completely. Description of Procedure: The patient was taken to the operating room and placed in the dorsolithotomy position, with legs supported in Apolinar stirrups. The external genitalia was prepped and draped sterilely. The 30 lens was used to introduce the 21-[place] Over[place] cystoscopic sheath through the urethra and into the bladder under direct vision. The bladder was examined in its entirety. Both ureteral orifices were normal anatomic location and configuration, and clear urine effluxed from both. No tumors or foreign bodies were seen. A 0.038 inch Glidewire was passed through the cystoscope. The left ureteral orifice was cannulated, and the Glidewire was advanced up to the renal pelvis. The cystoscope was removed, and an 11/13-[place] Citizen ureteral access catheter was passed over the wire, up to the mid ureter. The Over[place] Baccaratra flexible ureteroscope was then passed through the ureteral access catheter sheath and advanced under direct vision up to the left renal pelvis, where the stone was readily visualized. The 272 micron Holmium laser probe was passed through the ureteroscope, and lithotripsy was performed utilizing a dusting mode. As fragments broke away, they were fragmented until there were no pieces exceeding 1 mm. As the calculus diminished in size, it refluxed into an upper pole calyx where lithotripsy was completed utilizing both a dusting and popcorning mode until there were no residual fragments exceeding 1 mm. Each calyx was then examined, and no additional calculi were identified. The ureteroscope was slowly withdrawn under direct vision. Pullout ureteroscopy showed no evidence of ureteral trauma. The Glidewire was passed through the ureteroscope, and after removing the ureteroscope the Glidewire was backloaded into the cystoscope, which was passed into the bladder. A 26 cm, 4.8 [place] double-J ureteral stent was placed over the wire. Proper stent positioning was verified fluoroscopically and endoscopically. The bladder was emptied and the cystoscope removed. A string left attached to the stent was taped to the patient's right medial thigh using a Tegaderm dressing. The patient tolerated the procedure well and was taken to the recovery room in stable condition. [facility] Report: Procedure Acuity: Elective Stone Size and Location: 14 mm, left renal pelvis Ureteral Dilation: No Ureteral Access Sheath Used: Yes Stone Sent for Analysis: No All Stones/Fragments Were Removed with a Basket: No Complications: No Preoperative Antibiotics Given: Yes Stent Placed: Yes If Stent Placed, Was String Left Attached: Yes If Stent Placed, When is it to be Removed: 1 week Discharge Medications: Toradol, tamsulosin
[2024-10-03 12:00] VITALS: RESP 16
[2024-10-03 12:05] VITALS: BP 129/80; PULSE 52
== END | disposition home or self-care (01) ==
LOC: OR 07:31
PROVIDERS: ATTEND Urology
DX: N13.2 Hydronephrosis with renal and ureteral calculous obstruction (principal); B96.20 Unspecified Escherichia coli [E. coli] as the cause of diseases classified elsewhere; K21.9 Gastro-esophageal reflux disease without esophagitis; E78.5 Hyperlipidemia, unspecified; F32.A Depression, unspecified; G43.909 Migraine, unspecified, not intractable, without status migrainosus; I10 Essential (primary) hypertension; Z87.891 Personal history of nicotine dependence; Z83.3 Family history of diabetes mellitus; Z82.49 Family history of ischemic heart disease and other diseases of the circulatory system; Z82.3 Family history of stroke; Z79.899 Other long term (current) drug therapy
CPT/HCPCS: 81025; 74018; 52356; C2625; C1769; J2250; J1100; J2710; J0690; J2405; J2003; J3010; J2704; J1596